=== PATIENT | female | born 1935 | race Caucasian/White ===

== ENCOUNTER 2017-06-06 05:34 | Inpatient (IN) | payer MEDICARE ==
[2017-06-01 08:40] VITALS: BMI 24.0
[2017-06-06] MEDS ORDERED: Sodium Chloride 0.9% 10 ML ONE (06:36)
[2017-06-06] MEDS ORDERED: Fentanyl 250 MCG/5 ML VIAL ONE (06:58)
[2017-06-06] MEDS ORDERED: CEFAZOLIN/Water 2 GM/20 ML SYRINGE ONE (07:00)
[2017-06-06 07:07] LABS: #Eosinphils 0.1 thou/uL (0.0-0.7); #Lymphocytes 1.3 thou/uL (1.20-3.40); #Monocytes 0.8 thou/uL (0.11-0.59); #Neutrophils 5.3 thou/uL (1.40-6.50); %Basophils 0.2 % (0.0-1.0); %Eosinophils 1.8 % (0.0-10.0); %Lymphocytes 17.8 % (21.0-51.0); %Monocytes 9.9 % (0.0-10.0); Hematocrit 36.7 % (36.0-47.0); Mean Platelet Volume 6.2 fL (7.4-10.4); Red Blood Cell (RBC) Count 3.96 mill/uL (4.20-5.40); White Blood Cell (WBC) Count 7.5 thou/uL (4.8-10.8)
[2017-06-06 07:23] LABS: Anion Gap 10 mmol/L (10-20); BUN (Urea Nitrogen) 15 mg/dL (9.8-20.1); Calc. Creatinine Clearance 59 mL/min (70-130); Calcium 9.3 mg/dL (7.8-10.44); Carbon Dioxide 25 mmol/L (23-31); Chloride 107 mmol/L (98-107); Estimated GFR-MDRD 76
[2017-06-06] MEDS ORDERED: Morphine Sulfate 2 MG/ML SYRINGE SLOW IVP PRN (08:05)
[2017-06-06] MEDS ORDERED: Promethazine HCl 25 MG/ML VIAL SLOW IVP PRN (08:05)
[2017-06-06] MEDS ORDERED: Promethazine HCl 25 MG/ML VIAL IM PRN ×2 (08:05→11:30)
[2017-06-06] MEDS ORDERED: Ondansetron HCl/PF 4 MG/2 ML Vial IVP PRN ×2 (08:05→11:30)
--- NOTE | 2017-06-06 08:38 | OP ---
DATE OF PROCEDURE: 06/06/2017 SURGEON: Mike Bourne M.D. CAFETERIA COUNTER ATTENDANT: Tessie Osei PROCEDURE: Removal of hardware C5-6, exploration of spinal fusion C5-6, anterior cervical discectomy C4-5, interbody arthrodesis, intravertebral biomechanical device, local morselized autograft, demine ralized bone matrix, and anterior titanium instrumentation C4-5. PROCEDURE IN DETAIL: The patient was brought to the operating room and intubated. She was positione d supine with the head in modest extension on a gel-filled donut. Incision was made in the right pre cervical area and dissecting medial to the sternocleidomastoid muscle. We identified the prior hardw are. The plate was removed and the fusion was explored and seemed to be solid. Next, we placed dist raction across C4-5, debrided the intervertebral disk, and using the operating microscope and microdi ssection techniques, completely decompressed the neural elements. Next, the bony endplates were deco rticated for the purpose of arthrodesis and an appropriately sized intravertebral biomechanical PEEK device was brought into the field, filled with demineralized bone matrix and local morselized autogra ft, and tapped into place securely at C4-5. Next, an anterior plate was brought in the field and sec ured to C4 and C5 using two 14 mm screws at each level. The wound was then extensively irrigated, im maculate hemostasis was secured, and the wound was closed in anatomic layers.
[2017-06-06] MEDS ORDERED: Fentanyl 100 MCG/2 ML VIAL ONE ×2 (08:51→09:17)
[2017-06-06] MEDS ORDERED: Ketorolac Tromethamine 30 MG/ML VIAL ONE (09:05)
[2017-06-06] MEDS ORDERED: tiZANidine HCl 4 MG TAB PO PRN (11:30)
[2017-06-06] MEDS ORDERED: diphenhydrAMINE 50 MG/ML VIAL IVP PRN (11:30)
[2017-06-06] MEDS ORDERED: Mag-Al 1200 mg/1200 mg/30 ML UDCUP PO PRN (11:30)
[2017-06-06] MEDS ORDERED: Promethazine HCl 12.5 MG SUPP PR PRN (11:30)
[2017-06-06] MEDS ORDERED: HYDROcodone/Acetaminophen 10/325 mg Tablet PO PRN (11:30)
[2017-06-06] MEDS ORDERED: diphenhydrAMINE 25 MG CAP PO PRN (11:30)
[2017-06-06] MEDS ORDERED: Morphine PF 1 MG/ML SYR IVP PRN (11:36)
[2017-06-06] MEDS ORDERED: Morphine 4 MG/ML VIAL SLOW IVP PRN (11:37)
[2017-06-06] MEDS ORDERED: traMADol HCl 50 MG TAB PO PRN (11:48)
[2017-06-06] MEDS: Dexamethasone 4 mg/ml Vial SLOW IVP SCH ×3 (11:51→23:26)
[2017-06-06] MEDS: Sodium Chloride 0.9% 1,000 ML IV SCH (11:59)
--- NOTE | 2017-06-06 12:57 | PDOC.PN ---
- Subjective Encounter Start Date: 06/06/17 Encounter Start Time: 10:40 Subjective: no sob or chest pain or palp -: has no trouble swallowing - Objective MAR Reviewed: Yes Vital Signs & Weight: Weight Weight 140 lb Result Diagrams: 06/06/17 06:59 06/06/17 06:59 Phys Exam - Physical Examination HEENT: PERRLA, moist MMs Neck: no JVD has surgical dressing anteriorly Respiratory: no wheezing, no rales Cardiovascular: RRR, no significant murmur Gastrointestinal: soft, non-tender, positive bowel sounds Musculoskeletal: no edema, pulses present Neurological: non-focal, moves all 4 limbs Psychiatric: A&O x 3 Dx/Plan (1) Cervical radiculopathy Code(s): M54.12 - RADICULOPATHY, CERVICAL REGION Status: Acute Comment: s/p ACDF 06/06/2017 (2) Dyslipidemia Code(s): E78.5 - HYPERLIPIDEMIA, UNSPECIFIED Status: Chronic (3) GERD (gastroesophageal reflux disease) Code(s): K21.9 - GASTRO-ESOPHAGEAL REFLUX DISEASE WITHOUT ESOPHAGITIS Status: Chronic Qualifiers: Esophagitis presence: esophagitis presence not specified Qualified Code(s) : K21.9 - Gastro-esophageal reflux disease without esophagitis (4) Paroxysmal A-fib Code(s): I48.0 - PAROXYSMAL ATRIAL FIBRILLATION Status: Chronic Comment: in sinus now - Plan post op doing well -: is off eliquis for surgery -: continue current home meds -: pravachol, fish oil and protonix -: flecainide prn for afib with rvr, will f/u * . Review of Systems - Medications/Allergies Allergies/Adverse Reactions: Allergies Allergy/AdvReac Type Severity Reaction Status Date / Time No Known Drug Allergies Allergy Verified 05/29/15 08:55 Medications: Current Medications Hydrocodone Bitart/Acetaminophen ([place] 10/325) 1 tab PO Q4H PRN PRN Reason: PAIN (1-3) Hydrocodone Bitart/Acetaminophen ([place] 10/325) 2 tab PO Q4H PRN PRN Reason: PAIN (4-6) Al Hydroxide/Mg Hydroxide (Maalox) 30 ml PO Q4H PRN PRN Reason: Heartburn or Indigestion Calcium/Vitamin D (Caltrate 600 + Vit D) 1 tab PO BID [place] Cefazolin Sodium (Ancef) 2 gm SLOW IVP 0800,1600,2359 [facility] Stop: 06/07/17 00:00 Cholecalciferol (Vitamin D3) 1,000 units PO DAILY [facility] Dexamethasone (Decadron) 4 mg SLOW IVP Q6HR [facility] Last Admin: 06/06/17 11:51 Dose: 4 mg Diphenhydramine HCl (Benadryl) 25 mg PO Q6H PRN PRN Reason: Itching Diphenhydramine HCl (Benadryl) 25 mg IVP Q6H PRN PRN Reason: Itching Fish Oil (Fish Oil) 1,000 mg PO BID [facility] Flecainide Acetate (Tambocor) 50 mg PO BID [facility] Sodium Chloride (Normal Saline 0.9%) 1,000 mls @ 75 mls/hr IV .[id number] [facility] Last Admin: 06/06/17 11:59 Dose: 1,000 mls Ketorolac Tromethamine (Toradol) 15 mg IVP 0300,0900,1500,2100 [facility] Stop: 06/08/17 09:01 Metoprolol Tartrate (Lopressor) 12.5 mg PO BID [facility] Morphine Sulfate (Duramorph) 2 mg IVP Q1H PRN PRN Reason: Moderate Breakthrough Pain Morphine Sulfate (Morphine) 4 mg SLOW IVP Q1H PRN PRN Reason: SEVERE BREAKTHROUGH PAIN Multivitamins (Theragran) 1 tab PO DAILY [facility] Ondansetron HCl (Zofran) 4 mg IVP Q24H PRN PRN Reason: Nausea/Vomiting Pantoprazole Sodium (Protonix) 40 mg PO DAILY [facility] Biotin 0 each PO DAILY [facility] Glucosamine (Chondroitin Complex) 0 each PO BID [facility] Promethazine HCl (Phenergan) 12.5 mg IM Q4H PRN PRN Reason: Nausea/Vomiting Promethazine HCl (Phenergan) 12.5 mg PO Q4H PRN PRN Reason: Nausea/Vomiting Promethazine HCl (Phenergan Suppository) 12.5 mg AR Q4H PRN PRN Reason: Nausea/Vomiting Simvastatin (Zocor) 10 mg PO HS [facility] Sodium Chloride (Flush - Normal Saline) 10 ml IVF PRN PRN PRN Reason: Saline Flush Tizanidine HCl (Zanaflex) 4 mg PO Q6H PRN PRN Reason: MUSCLE SPASM Tramadol HCl (Ultram) 50 mg PO BID PRN PRN Reason: Mild Pain (1-3)
[2017-06-06] MEDS ORDERED: Glycopyrrolate 0.2 MG/ML 5 ML SYRINGE ONE (13:57)
[2017-06-06] MEDS ORDERED: Lidocaine 1% PF 5 ML VIAL ONE (13:57)
[2017-06-06] MEDS ORDERED: Dexamethasone 20 MG/5 ML VIAL ONE (13:57)
[2017-06-06] MEDS ORDERED: Ondansetron HCl/PF 4 MG/2 ML Vial ONE (13:57)
[2017-06-06] MEDS ORDERED: Propofol 200 MG/20 ML VIAL ONE (13:57)
[2017-06-06] MEDS: Ketorolac Tromethamine 30 MG/ML VIAL IVP SCH ×2 (14:19→21:05)
[2017-06-06] MEDS: HYDROcodone/Acetaminophen 10/325 mg Tablet PO PRN ×2 (14:20→21:17)
[2017-06-06] MEDS: CEFAZOLIN/Water 2 GM/20 ML SYRINGE SLOW IVP SCH ×2 (14:20→23:26)
[2017-06-06] MEDS ORDERED: Simvastatin 5 MG TAB PO SCH (21:00)
[2017-06-06] MEDS ORDERED: GLUCOSAMINE CHONDROITIN COMPLEX PO SCH (21:00)
[2017-06-06] MEDS ORDERED: Metoprolol Tartrate 25 MG TAB PO SCH (21:00)
[2017-06-06] MEDS: Calcium Carbonate + Vit D 1 TAB PO SCH (21:03)
[2017-06-06] MEDS: Fish Oil 1,000 MG CAP PO SCH (21:04)
[2017-06-07] MEDS: Sodium Chloride 0.9% 1,000 ML IV SCH (00:29)
[2017-06-07] MEDS: Ketorolac Tromethamine 30 MG/ML VIAL IVP SCH ×2 (04:15→09:44)
[2017-06-07] MEDS: Dexamethasone 4 mg/ml Vial SLOW IVP SCH (05:26)
[2017-06-07 05:50] LABS: #Lymphocytes 0.9 thou/uL (1.20-3.40); #Monocytes 0.4 thou/uL (0.11-0.59); #Neutrophils 14.9 thou/uL (1.40-6.50); %Eosinophils 0.1 % (0.0-10.0); %Lymphocytes 5.3 % (21.0-51.0); %Monocytes 2.4 % (0.0-10.0); Hematocrit 37.1 % (36.0-47.0); Red Blood Cell (RBC) Count 3.96 mill/uL (4.20-5.40); White Blood Cell (WBC) Count 16.1 thou/uL (4.8-10.8)
[2017-06-07 06:11] LABS: Anion Gap 10 mmol/L (10-20); BUN (Urea Nitrogen) 17 mg/dL (9.8-20.1); Calc. Creatinine Clearance 59 mL/min (70-130); Calcium 9.7 mg/dL (7.8-10.44); Carbon Dioxide 26 mmol/L (23-31); Chloride 105 mmol/L (98-107); Estimated GFR-MDRD 77
[2017-06-07 07:59] VITALS: TEMP 97.8
[2017-06-07] MEDS ORDERED: Multivit, Therapeutic 1 TAB PO SCH (09:00)
[2017-06-07] MEDS ORDERED: BIOTIN PO SCH (09:00)
[2017-06-07] MEDS: Calcium Carbonate + Vit D 1 TAB PO SCH (09:43)
[2017-06-07] MEDS: Fish Oil 1,000 MG CAP PO SCH (09:44)
[2017-06-07] MEDS: HYDROcodone/Acetaminophen 10/325 mg Tablet PO PRN (09:45)
--- NOTE | 2017-06-07 10:23 | PDOC.PN ---
- Subjective Encounter Start Date: 06/07/17 Encounter Start Time: 07:50 -: old records requested/rev Patient seen and examined. No new complaints. No overnight events, no swallow problem - Objective MAR Reviewed: Yes Vital Signs & Weight: Vital Signs (12 hours) Temp Pulse Resp BP Pulse Ox 06/07/17 07:30 97.8 F 66 16 115/68 96 06/07/17 04:00 97.7 F 61 18 107/60 95 06/07/17 00:00 97.9 F 65 18 106/62 94 L Weight Weight 140 lb I&O: 06/06/17 06/07/17 06/08/17 06:59 06:59 06:59 Intake Total 1500 Balance 1500 Result Diagrams: 06/07/17 04:35 06/07/17 04:35 Phys Exam - Physical Examination Constitutional: NAD HEENT: PERRLA, moist MMs, sclera anicteric Neck: no JVD, supple surgical site with dressing Respiratory: no wheezing, no rales, no rhonchi Cardiovascular: RRR, no significant murmur, no rub Gastrointestinal: soft, non-tender, no distention, positive bowel sounds Musculoskeletal: no edema, pulses present Neurological: non-focal, normal sensation, moves all 4 limbs Psychiatric: normal affect, A&O x 3 Skin: no rash, normal turgor Dx/Plan (1) Cervical radiculopathy Code(s): M54.12 - RADICULOPATHY, CERVICAL REGION Status: Acute Comment: s/p ACDF 06/06/2017 (2) S/P hardware removal Code(s): Z98.890 - OTHER SPECIFIED POSTPROCEDURAL STATES Status: Acute (3) Chronic anticoagulation Code(s): Z79.01 - SUBMARINE CABLE EQUIPMENT TECHNICIAN (CURRENT) USE OF ANTICOAGULANTS Status: Chronic (4) Dyslipidemia Code(s): E78.5 - HYPERLIPIDEMIA, UNSPECIFIED Status: Chronic (5) GERD (gastroesophageal reflux disease) Code(s): K21.9 - GASTRO-ESOPHAGEAL REFLUX DISEASE WITHOUT ESOPHAGITIS Status: Chronic Qualifiers: Esophagitis presence: esophagitis presence not specified Qualified Code(s) : K21.9 - Gastro-esophageal reflux disease without esophagitis (6) Paroxysmal A-fib Code(s): I48.0 - PAROXYSMAL ATRIAL FIBRILLATION Status: Chronic Comment: in sinus now - Plan cont current plan of care * medication reviewed as below * symptomatic treatment * pt is planned for discharge today * resume home meds. * on hold elsi until cleared by neurosurgeon for her PAF Review of Systems - Review of Systems ENT: negative: Ear Pain, Ear Discharge, Nose Pain, Nose Discharge, Nose Congestion, Mouth Pain, Mouth Swelling, Throat Pain, Throat Swelling, Other Respiratory: negative: Cough, Dry, Shortness of Breath, Hemoptysis, SOB with Excertion, Pleuritic Pain, Sputum, Wheezing Cardiovascular: negative: Chest Pain, Palpitations, Orthopnea, Paroxysmal Noc. Dyspnea, Edema, Light Headedness, Other Gastrointestinal: negative: Nausea, Vomiting, Abdominal Pain, Diarrhea, Constipation, Melena, Hematochezia, Other Genitourinary: negative: Dysuria, Frequency, Incontinence, Hematuria, Retention , Other Musculoskeletal: negative: Neck Pain, Shoulder Pain, Arm Pain, Back Pain, Hand Pain, Leg Pain, Foot Pain, Other Skin: negative: Rash, Lesions, Renny, Bruising, Other - Medications/Allergies Allergies/Adverse Reactions: Allergies Allergy/AdvReac Type Severity Reaction Status Date / Time No Known Drug Allergies Allergy Verified 05/29/15 08:55 Medications: Current Medications Hydrocodone Bitart/Acetaminophen ([place] 10/325) 1 tab PO Q4H PRN PRN Reason: PAIN (1-3) Hydrocodone Bitart/Acetaminophen ([place] 10/325) 2 tab PO Q4H PRN PRN Reason: PAIN (4-6) Last Admin: 06/07/17 09:45 Dose: 2 tab Al Hydroxide/Mg Hydroxide (Maalox) 30 ml PO Q4H PRN PRN Reason: Heartburn or Indigestion Calcium/Vitamin D (Caltrate 600 + Vit D) 1 tab PO BID [facility] Last Admin: 06/07/17 09:43 Dose: 1 tab Cholecalciferol (Vitamin D3) 1,000 units PO DAILY [facility] Last Admin: 06/07/17 09:44 Dose: 1,000 units Dexamethasone (Decadron) 4 mg SLOW IVP Q6HR [facility] Last Admin: 06/07/17 05:26 Dose: 4 mg Diphenhydramine HCl (Benadryl) 25 mg PO Q6H PRN PRN Reason: Itching Diphenhydramine HCl (Benadryl) 25 mg IVP Q6H PRN PRN Reason: Itching Fish Oil (Fish Oil) 1,000 mg PO BID [facility] Last Admin: 06/07/17 09:44 Dose: 1,000 mg Flecainide Acetate (Tambocor) 50 mg PO BID PRN PRN Reason: afib Sodium Chloride (Normal Saline 0.9%) 1,000 mls @ 75 mls/hr IV .[id number] [facility] Last Admin: 06/07/17 00:29 Dose: Not Given Ketorolac Tromethamine (Toradol) 15 mg IVP 0300,0900,1500,2100 [facility] Stop: 06/08/17 09:01 Last Admin: 06/07/17 09:44 Dose: 15 mg Morphine Sulfate (Duramorph) 2 mg IVP Q1H PRN PRN Reason: Moderate Breakthrough Pain Morphine Sulfate (Morphine) 4 mg SLOW IVP Q1H PRN PRN Reason: SEVERE BREAKTHROUGH PAIN Multivitamins (Theragran) 1 tab PO DAILY [facility] Last Admin: 06/07/17 09:45 Dose: 1 tab Ondansetron HCl (Zofran) 4 mg IVP Q24H PRN PRN Reason: Nausea/Vomiting Pantoprazole Sodium (Protonix) 40 mg PO DAILY [facility] Last Admin: 06/07/17 09:45 Dose: 40 mg Biotin 0 each PO DAILY [facility] Glucosamine (Chondroitin Complex) 0 each PO BID [facility] Promethazine HCl (Phenergan) 12.5 mg IM Q4H PRN PRN Reason: Nausea/Vomiting Promethazine HCl (Phenergan) 12.5 mg PO Q4H PRN PRN Reason: Nausea/Vomiting Promethazine HCl (Phenergan Suppository) 12.5 mg PA Q4H PRN PRN Reason: Nausea/Vomiting Simvastatin (Zocor) 10 mg PO HS [facility] Last Admin: 06/06/17 21:04 Dose: 10 mg Sodium Chloride (Flush - Normal Saline) 10 ml IVF PRN PRN PRN Reason: Saline Flush Tizanidine HCl (Zanaflex) 4 mg PO Q6H PRN PRN Reason: MUSCLE SPASM Tramadol HCl (Ultram) 50 mg PO BID PRN PRN Reason: Mild Pain (1-3)
[2017-06-07 11:33] VITALS: BP 137/78
--- NOTE | 2017-06-07 12:43 | DIS ---
DATE OF ADMISSION: 06/06/2017 DATE OF DISCHARGE: 06/07/2017 PRIMARY CARE PHYSICIAN: Franky Holman M.D. DISCHARGE DISPOSITION: Home. PRIMARY DISCHARGE DIAGNOSIS: Status post removal of hardware C5-C6 anterior cervical diskectomy. SECONDARY DISCHARGE DIAGNOSES: Cervical radiculopathy, chronic anticoagulation with Eliquis, dyslipi demia, gastroesophageal reflux disease, and paroxysmal atrial fibrillation. PRIMARY PROCEDURE/OPERATION: Anterior cervical diskectomy C4-C5, exploration of spinal fusion C5-C6, and removal of hardware at C5-C6. RADIOLOGICAL INVESTIGATION: None. SIGNIFICANT LABORATORY DATA: WBC 16.1, hemoglobin 11.8, platelets 330. Sodium 136, potassium 4.5, B UN 17, creatinine 0.72, and calcium 9.7. DISCHARGE MEDICATIONS: Biotin 3000 mcg p.o. daily, calcium with vitamin D 1 tablet twice daily, bindu min D3 1000 units p.o. daily, fish oil 1000 mg p.o. b.i.d., flecainide 50 mg p.o. b.i.d., glucosamine 1 tablet p.o. b.i.d., [place] 7.5 one tablet q.6 hourly p.r.n., Lopressor 12.5 mg p.o. b.i.d., multivi tamin 1 capsule p.o. daily, Protonix 40 mg p.o. daily, pravastatin 20 mg p.o. at bedtime, Zanaflex 4 mg q.6 hourly p.r.n. at bedtime, tramadol 50 mg b.i.d. p.r.n. CONTRAINDICATIONS: None. CODE STATUS: FULL CODE. INPATIENT CONSULTANTS: Dr. Bourne was primary while in hospital. The patient will follow up with Dr. Franky Holman as instructed. The patient will follow up with Dr. Bourne as instructed. HOSPITAL COURSE: An 82-year-old female who was admitted by Dr. Bourne. The patient underwent wilber kelly of hardware at C5-C6, exploration of spinal fusion at C5-C6, and anterior cervical diskectomy at C4-5. Post procedure, patient was at surgical floor and sound team consulted for medical comanagemen t. The patient was medically stable. While in hospital, the patient was off on anticoagulation ther apy because of cervical spine surgery. She will be off on that medication until cleared by neurosurg dara and the rest of medication can be continued upon discharge and we continued while in hospital as well. Her pain is controlled. Patient is ambulatory. She does not have any difficulty swallowing. The patient is medically stable for discharge today. The patient is seen and examined at bedside today. Please see my progress from today for further det ails.
== END 2017-06-07 12:33 | disposition home or self-care (01) | DRG 473 ==
LOC: SURG A 05:34 → SURG B 09:38
PROVIDERS: ADMIT Neurological Surgery; ATTEND Neurological Surgery
PROC: 0RG20A0 Fusion of 2 or more Cervical Vertebral Joints with Interbody Fusion Device, Anterior Approach, Anterior Column, Open Approach (ICD-10-PCS; principal; 2017-06-06)
PROC: 0RP104Z Removal of Internal Fixation Device from Cervical Vertebral Joint, Open Approach (ICD-10-PCS; 2017-06-06)
PROC: 0RB30ZZ Excision of Cervical Vertebral Disc, Open Approach (ICD-10-PCS; 2017-06-06)
PROC: 01N10ZZ Release Cervical Nerve, Open Approach (ICD-10-PCS; 2017-06-06)
DX: M50.121 Cervical disc disorder at C4-C5 level with radiculopathy (principal); I48.0 Paroxysmal atrial fibrillation; E78.5 Hyperlipidemia, unspecified; K21.9 Gastro-esophageal reflux disease without esophagitis; Z79.01 Long term (current) use of anticoagulants
CPT/HCPCS: 36415; 76001; 80048; 85025; 93005; 93010; A4216; C1713; J1100; J1885; J2001; J2405; J2704; J3010; J3490

== ENCOUNTER 2017-06-21 10:58 | Outpatient (CLI) | payer MEDICARE ==
--- NOTE | 2017-06-21 13:00 | RAD ---
CERVICAL SPINE: HISTORY: Postop followup. Cervical disk disease. FINDINGS: The patient is post an anterior fusion procedure. Anterior plate and screws transfix C4-C5 with an i nterbody implant at this level, which appears adequately positioned. There is also an interbody impl anted noted at C5-C6, which appears adequately positioned with partial fusion at this level. Posteri or alignment is preserved throughout the cervical spine. Mild degenerative change. IMPRESSION: Postoperative findings as described. POS: JAYLEN
== END 2017-06-21 10:59 | disposition home or self-care (01) ==
LOC: TBSIIMAG 10:58
PROVIDERS: ATTEND Neurological Surgery
DX: M50.90 Cervical disc disorder, unspecified, unspecified cervical region (principal); Z98.1 Arthrodesis status
CPT/HCPCS: 72040

== ENCOUNTER 2017-08-04 13:31 | Outpatient (CLI) | payer MEDICARE ==
--- NOTE | 2017-08-04 14:55 | RAD ---
FOUR VIEWS CERVICAL SPINE: INDICATION: Disk degeneration. COMPARISON: Prior exam dated 06/21/17. FINDINGS: ACDF at C4-5 with intervertebral disk cage at C5-6 is stable. The instrumentation projects in the ex pected position. The instrumentation projects in the expected position. Spinal alignment is preserv ed. Prevertebral soft tissues are normal-appearing. Lateral masses are symmetric. The lung apices are clear. IMPRESSION: Stable postoperative cervical spine. POS: JAYLEN
== END 2017-08-04 13:32 | disposition home or self-care (01) ==
LOC: TBSIIMAG 13:31
PROVIDERS: ATTEND Neurological Surgery
DX: M50.30 Other cervical disc degeneration, unspecified cervical region (principal); Z98.890 Other specified postprocedural states
CPT/HCPCS: 72040

== ENCOUNTER 2017-10-13 13:31 | Outpatient (CLI) | payer MEDICARE ==
--- NOTE | 2017-10-13 16:07 | MRI ---
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 TECHNIQUE: 3D [id number] was obtained of the major arterial structures of the brain. FINDINGS: No hemodynamically significant stenosis, occlusion or aneurysmal formation is demonstrated involving the ACAs, MCAs, scrap preparation supervisor, basilar or intracranial ICAs. The right vertebral artery is slightly diminutive . The visualized proximal aspects of the ophthalmic arteries appear patent. IMPRESSION: No hemodynamically significant demonstrated. POS: JAYLEN
--- NOTE | 2017-10-13 16:29 | MRI ---
MRI OF BRAIN WITHOUT CONTRAST 10/13/17 HISTORY: Ischemic optic neuropathy, left eye. Patient complains of difficulty seeing out of the right eye. Con cern for CVA. FINDINGS: No restricted diffusion is seen. No evidence of infarct, hemorrhage, midline shift, or abnormal extr a-axial fluid collections are identified. The ventricular size is appropriate and the basilar cistern s patent. There are a few foci of T2 prolongation in the periventricular white matter consistent with mild chronic small vessel ischemic disease. The visualized paranasal sinuses and mastoids air cells are well aerated. IMPRESSION: No evidence of acute intracranial process. POS: [facility]
== END 2017-10-13 13:32 | disposition home or self-care (01) ==
LOC: MRI 13:31
PROVIDERS: ATTEND Internal Medicine
DX: H47.012 Ischemic optic neuropathy, left eye (principal); I69.30 Unspecified sequelae of cerebral infarction
CPT/HCPCS: 70544; 70551

== ENCOUNTER 2017-12-20 09:19 | Outpatient (CLI) | payer MEDICARE ==
--- NOTE | 2017-12-20 11:22 | RAD ---
4 VIEWS CERVICAL SPINE: Date: 12/20/17 COMPARISON: None. HISTORY: Pain, dysphagia, prior cervical spine fusion surgery. FINDINGS: Lateral neutral imaging, as well as frontal imaging, open-mouth odontoid view, and Fuchs view provide d. Anterior diskectomy and fusion hardware is noted at C4-5. There is an intervertebral disc device at C 5-6 as well. This postoperative hardware is stable when compared to the 08/04/17 examination. No prev ertebral soft tissue abnormality. Lateral imaging demonstrates no anterolisthesis or retrolisthesis w ithin the cervical spine. Frontal imaging demonstrates normal alignment. The open-mouth odontoid view demonstrates a normal appearing dens and C1-2 articulation. The Fuchs view is unremarkable. IMPRESSION: Postoperative changes within the cervical spine as above. POS: JAYLEN
== END 2017-12-20 09:20 | disposition home or self-care (01) ==
LOC: TBSIIMAG 09:19
PROVIDERS: ATTEND Neurological Surgery
DX: M50.90 Cervical disc disorder, unspecified, unspecified cervical region (principal); Z98.1 Arthrodesis status; Z98.890 Other specified postprocedural states
CPT/HCPCS: 72040

== ENCOUNTER 2019-12-19 08:49 | Outpatient (CLI) | payer MEDICARE ==
--- NOTE | 2019-12-19 09:40 | BD ---
BONE DENSITOMETRY: INDICATION: Postmenopausal screening. FINDINGS: Lumbar Spine: BMD (g/cm2) L1 0.661 T-Score: -3.0 L2 0.690 T-Score: -3.1 L3 0.801 T-Score: -2.6 L4 0.929 T-Score: -1.2 L1-L4 0.778 T-Score: -2.4 Femoral Neck: 0.516 T-Score: -3.0 Total Femur: 0.611 T-Score: -2.7 Impression: 1. Bone mineral density of the femoral neck indicates osteoporosis. 2. Bone mineral density of the lumbar spine indicates osteopenia. POS: [facility]
== END 2019-12-19 08:50 | disposition home or self-care (01) ==
LOC: BICMAMMO 08:49
PROVIDERS: ATTEND Internal Medicine Rheumatology
DX: M81.0 Age-related osteoporosis without current pathological fracture (principal); M85.859 Other specified disorders of bone density and structure, unspecified thigh
CPT/HCPCS: 77080

== ENCOUNTER 2020-12-18 15:04 | Inpatient (IN) | payer MEDICARE ==
[2020-12-18 15:46] LABS: #Lymphocytes 0.8 thou/uL (1.20-3.40); #Monocytes 0.5 thou/uL (0.11-0.59); #Neutrophils 9.1 thou/uL (1.40-6.50); %Basophils 0.2 % (0.0-1.0); %Eosinophils 0.3 % (0.0-10.0); %Lymphocytes 7.7 % (21.0-51.0); %Monocytes 4.7 % (0.0-10.0); %Neutrophils 87.2 % (42.0-75.0); Mean Corpuscular HGB CONC 35.2 g/dL (32.0-36.0); Mean Corpuscular Hemoglobin 32.9 pg (27.0-31.0); Mean Corpuscular Volume 93.5 fL (78.0-98.0); Mean Platelet Volume 7.8 fL (7.4-10.4); Platelet Count 217 thou/uL (130-400); RBC Distribution Width 12.3 % (11.5-14.5); Red Blood Cell (RBC) Count 4.88 mill/uL (4.20-5.40); White Blood Cell (WBC) Count 10.4 thou/uL (4.8-10.8)
[2020-12-18 16:12] LABS: AST (SGOT) 18 U/L (5-34); Albumin 4.4 g/dL (3.4-4.8); Alkaline Phosphatase 44 U/L (40-110); Anion Gap 14 mmol/L (10-20); BUN (Urea Nitrogen) 15 mg/dL (9.8-20.1); Bilirubin, Total 1.3 mg/dL (0.2-1.2); Calc. Creatinine Clearance 0 mL/min (70-130); Calcium 9.8 mg/dL (7.8-10.44); Carbon Dioxide 23 mmol/L (23-31); Chloride 103 mmol/L (98-107); Globulin 1.8 g/dL (2.4-3.5); Glucose 113 mg/dL (83-110); Lipase 12 U/L (8-78); Magnesium 1.9 mg/dL (1.6-2.6); Potassium 3.9 mmol/L (3.5-5.1); Protein, Total 6.2 g/dL (5.8-8.1); Sodium 136 mmol/L (136-145)
[2020-12-18 16:22] LABS: ALT (SGPT) 21 U/L (8-55)
[2020-12-18 16:23] LABS: Bilirubin Negative (Negative); Blood, Urine Small (Negative); Glucose, Urine (Dipstick) Negative (Negative); Ketone, Urine Negative (Negative); Leukocyte Negative (Negative); Nitrite Negative (Negative); Protein, Urine (Dipstick) Negative (Neg-Trace); Urobilinogen 0.2 mg/dL (Less than 2)
[2020-12-18 16:26] LABS: Clarity Clear (Clear)
[2020-12-18 16:29] LABS: Bacteria/HPF None Seen HPF (None Seen); RBC/HPF 0-3 HPF (0-3); Squamous Epithelial None Seen HPF (0-3); WBC/HPF 0-3 HPF (0-3)
[2020-12-18] MEDS ORDERED: Aspirin Chewable 81 MG TAB PO SCH (19:00)
[2020-12-18] MEDS ORDERED: HYDROcodone/Acetaminophen 5/325 mg Tablet PO PRN (19:59)
[2020-12-18] MEDS ORDERED: Calcium Carbonate 500 MG ChewTAB PO PRN (20:00)
[2020-12-18] MEDS ORDERED: Mag-Al 1200 mg/1200 mg/30 ML UDCUP PO PRN (20:00)
[2020-12-18] MEDS ORDERED: traMADol HCl 50 MG TAB PO PRN ×2 (20:02→20:28)
[2020-12-18 20:08] VITALS: BMI 24.9
[2020-12-18] MEDS ORDERED: TOCILIZUMAB 162 MG/0.9 ML SQ SCH (20:30)
[2020-12-18] MEDS ORDERED: Fish Oil 1,000 MG CAP PO SCH (21:00)
[2020-12-18] MEDS ORDERED: Calcium Carbonate 600 MG + Vit D TAB PO SCH (21:00)
[2020-12-18 21:31] LABS: Troponin I Less than 0.010 ng/mL (< 0.028)
[2020-12-18] MEDS: HYDROcodone/Acetaminophen 7.5/325 mg Tablet PO PRN (21:32)
[2020-12-18] MEDS: Flecainide 50 MG TAB PO SCH (21:36)
[2020-12-18] MEDS: Melatonin 3 MG TAB PO SCH (21:36)
[2020-12-18] MEDS: Acetaminophen 325 MG TAB PO PRN (22:35)
[2020-12-18] MEDS: Simvastatin 10 MG TAB PO SCH (22:36)
[2020-12-18] MEDS: Apixaban 2.5 MG TAB PO SCH (22:36)
[2020-12-19] MEDS: HYDROcodone/Acetaminophen 7.5/325 mg Tablet PO PRN ×3 (03:18→17:15)
[2020-12-19] MEDS: Acetaminophen 325 MG TAB PO PRN ×2 (03:25→17:14)
[2020-12-19] MEDS ORDERED: Bisacodyl 5 MG TAB PO PRN (03:56)
[2020-12-19] MEDS ORDERED: Non-Formulary Item 1 EACH (Cholecalciferol (Vitamin D3) [Vitamin D3] 2,000 UNIT Tablet) PO SCH (09:00)
[2020-12-19] MEDS: predniSONE 1 MG TAB PO SCH (09:29)
[2020-12-19] MEDS: Flecainide 50 MG TAB PO SCH (09:30)
[2020-12-19] MEDS: Apixaban 2.5 MG TAB PO SCH ×2 (09:32→20:31)
[2020-12-19 11:14] LABS: SARS-CoV-2 PCR by NAA Not Detected (NotDetected)
[2020-12-19 13:14] LABS: Hemoglobin 16.1 g/dL (12.0-16.0); Platelet Count 209 thou/uL (130-400)
[2020-12-19] MEDS ORDERED: Flecainide 50 MG TAB PO SCH (16:00)
[2020-12-19] MEDS: Simvastatin 10 MG TAB PO SCH (20:32)
[2020-12-20] MEDS: Melatonin 3 MG TAB PO SCH ×2 (00:11→21:02)
[2020-12-20 05:05] LABS: #Basophils 0.1 thou/uL (0.0-0.2); #Eosinphils 0.1 thou/uL (0.0-0.7); #Lymphocytes 1.9 thou/uL (1.20-3.40); #Monocytes 0.7 thou/uL (0.11-0.59); %Basophils 0.7 % (0.0-1.0); %Eosinophils 1.7 % (0.0-10.0); %Lymphocytes 24.2 % (21.0-51.0); %Monocytes 9.1 % (0.0-10.0); %Neutrophils 64.4 % (42.0-75.0); Hemoglobin 15.2 g/dL (12.0-16.0); Mean Corpuscular HGB CONC 33.6 g/dL (32.0-36.0); Mean Corpuscular Volume 95.1 fL (78.0-98.0); Mean Platelet Volume 7.6 fL (7.4-10.4); Platelet Count 212 thou/uL (130-400); RBC Distribution Width 12.5 % (11.5-14.5); Red Blood Cell (RBC) Count 4.75 mill/uL (4.20-5.40); White Blood Cell (WBC) Count 7.7 thou/uL (4.8-10.8)
[2020-12-20 05:27] LABS: Anion Gap 10 mmol/L (10-20); BUN (Urea Nitrogen) 14 mg/dL (9.8-20.1); Calc. Creatinine Clearance 45 mL/min (70-130); Calcium 9.2 mg/dL (7.8-10.44); Carbon Dioxide 27 mmol/L (23-31); Chloride 103 mmol/L (98-107); Glucose 98 mg/dL (83-110); Potassium 3.6 mmol/L (3.5-5.1); Sodium 136 mmol/L (136-145)
[2020-12-20] MEDS: HYDROcodone/Acetaminophen 7.5/325 mg Tablet PO PRN ×2 (08:07→19:00)
[2020-12-20] MEDS: Acetaminophen 325 MG TAB PO PRN ×2 (08:08→19:00)
[2020-12-20] MEDS ORDERED: Dronedarone HCl 400 MG TAB PO SCH (08:15)
[2020-12-20] MEDS: predniSONE 1 MG TAB PO SCH (09:00)
[2020-12-20] MEDS ORDERED: Flecainide 50 MG TAB PO SCH (09:00)
[2020-12-20] MEDS: Apixaban 2.5 MG TAB PO SCH ×2 (09:01→20:12)
[2020-12-20] MEDS: Dronedarone HCl 400 MG TAB PO SCH (17:03)
[2020-12-20] MEDS: Simvastatin 10 MG TAB PO SCH (20:12)
[2020-12-21] MEDS: Acetaminophen 325 MG TAB PO PRN ×2 (03:35→14:25)
[2020-12-21] MEDS: HYDROcodone/Acetaminophen 7.5/325 mg Tablet PO PRN ×2 (03:36→14:24)
[2020-12-21] MEDS: predniSONE 1 MG TAB PO SCH (08:21)
[2020-12-21] MEDS: Apixaban 2.5 MG TAB PO SCH (08:21)
[2020-12-21] MEDS: Dronedarone HCl 400 MG TAB PO SCH (08:22)
[2020-12-21 12:43] VITALS: BP 124/75; TEMP 98
== END 2020-12-21 15:38 | disposition home or self-care (01) | DRG 310 ==
LOC: ERS 15:04 → 2SW 17:41 → OBSVTOIN 12-19 15:45
PROVIDERS: ADMIT Internal Medicine; ATTEND Internal Medicine
DX: I48.0 Paroxysmal atrial fibrillation (principal); Z23 Encounter for immunization; Z20.822 Contact with and (suspected) exposure to COVID-19; I44.0 Atrioventricular block, first degree; I49.1 Atrial premature depolarization; R91.8 Other nonspecific abnormal finding of lung field; I10 Essential (primary) hypertension; K21.9 Gastro-esophageal reflux disease without esophagitis; H54.40 Blindness, one eye, unspecified eye; M31.5 Giant cell arteritis with polymyalgia rheumatica; E78.5 Hyperlipidemia, unspecified; I25.10 Atherosclerotic heart disease of native coronary artery without angina pectoris; E78.00 Pure hypercholesterolemia, unspecified; I95.9 Hypotension, unspecified; Z79.01 Long term (current) use of anticoagulants; Z79.52 Long term (current) use of systemic steroids; Z79.899 Other long term (current) drug therapy
CPT/HCPCS: 36415; 70450; 71045; 80048; 80053; 81003; 81015; 82565; 83690; 83735; 83880; 84484; 85014; 85018; 85025; 85049; 90471; 90732; 93005; 93010; 94760; G0009; G0378; J7512; U0003; U0005

== ENCOUNTER 2020-12-26 09:49 | Outpatient (CLI) | payer MEDICARE | END 2020-12-26 09:50 | disposition home or self-care (01) | LOC: PET 09:49 | PROVIDERS: ATTEND Internal Medicine Pulmonary Disease | DX: C34.90 Malignant neoplasm of unspecified part of unspecified bronchus or lung (principal); R91.8 Other nonspecific abnormal finding of lung field | CPT/HCPCS: 78815; A9552 ==

== ENCOUNTER 2021-01-06 13:44 | Outpatient (CLI) | payer MEDICARE | END 2021-01-06 13:45 | disposition home or self-care (01) | LOC: LABBT 13:44 | PROVIDERS: ATTEND Thoracic Surgery (Cardiothoracic Vascular Surgery) | DX: Z01.812 Encounter for preprocedural laboratory examination (principal); C34.91 Malignant neoplasm of unspecified part of right bronchus or lung | CPT/HCPCS: 80048; 85027; 86850; 86900; 86901 ==

== ENCOUNTER 2021-01-27 16:03 | Inpatient (IN) | payer MEDICARE ==
[2021-01-27 16:48] LABS: #Eosinphils 0.1 thou/uL (0.0-0.7); #Lymphocytes 0.7 thou/uL (1.20-3.40); #Monocytes 0.6 thou/uL (0.11-0.59); #Neutrophils 13.6 thou/uL (1.40-6.50); %Basophils 0.1 % (0.0-1.0); %Eosinophils 0.3 % (0.0-10.0); %Lymphocytes 4.9 % (21.0-51.0); %Monocytes 3.8 % (0.0-10.0); %Neutrophils 90.9 % (42.0-75.0); Hemoglobin 8.2 g/dL (12.0-16.0); Mean Corpuscular HGB CONC 34.4 g/dL (32.0-36.0); Mean Corpuscular Hemoglobin 32.6 pg (27.0-31.0); Mean Corpuscular Volume 94.8 fL (78.0-98.0); Mean Platelet Volume 6.8 fL (7.4-10.4); Platelet Count 265 thou/uL (130-400); RBC Distribution Width 12.5 % (11.5-14.5); Red Blood Cell (RBC) Count 2.52 mill/uL (4.20-5.40)
[2021-01-27 17:11] LABS: ALT (SGPT) 10 U/L (8-55); AST (SGOT) 13 U/L (5-34); Albumin 3.5 g/dL (3.4-4.8); Alkaline Phosphatase 52 U/L (40-110); Anion Gap 11 mmol/L (10-20); BUN (Urea Nitrogen) 15 mg/dL (9.8-20.1); Bilirubin, Total 0.6 mg/dL (0.2-1.2); Calc. Creatinine Clearance 0 mL/min (70-130); Calcium 8.5 mg/dL (7.8-10.44); Carbon Dioxide 25 mmol/L (23-31); Chloride 102 mmol/L (98-107); Globulin 1.4 g/dL (2.4-3.5); Glucose 125 mg/dL (83-110); Potassium 4.3 mmol/L (3.5-5.1); Protein, Total 4.9 g/dL (5.8-8.1); Sodium 134 mmol/L (136-145)
[2021-01-27] MEDS ORDERED: Morphine 4 MG/ML VIAL ONE ×2 (17:48→21:00)
[2021-01-27] MEDS ORDERED: Piperacillin/Tazobactam 3.375 GM in Sodium Chloride 0.9% 100 ML IVPB SCH ×2 (23:30→23:59)
[2021-01-27] MEDS ORDERED: Piperacillin/Tazobactam 3.375 GM VIAL ONE (23:43)
[2021-01-27] MEDS: Acetaminophen 325 MG TAB PO PRN (23:50)
[2021-01-28] MEDS ORDERED: traMADol HCl 50 MG TAB PO PRN (00:04)
[2021-01-28] MEDS ORDERED: Gabapentin 300 MG CAP PO SCH (00:30)
[2021-01-28] MEDS: HYDROcodone/Acetaminophen 5/325 mg Tablet PO PRN ×3 (00:56→10:01)
[2021-01-28] MEDS: Piperacillin/Tazobactam 3.375 GM in Sodium Chloride 0.9% 100 ML IVPB SCH ×3 (05:00→20:11)
[2021-01-28 06:33] LABS: Anion Gap 9 mmol/L (10-20); BUN (Urea Nitrogen) 13 mg/dL (9.8-20.1); Calc. Creatinine Clearance 56 mL/min (70-130); Calcium 8.6 mg/dL (7.8-10.44); Carbon Dioxide 29 mmol/L (23-31); Chloride 103 mmol/L (98-107); Glucose 103 mg/dL (83-110); Iron 13 ug/dL (50-170); Iron Binding Capacity, Total 288 mcg/dL (265-497); Potassium 3.7 mmol/L (3.5-5.1); Sodium 137 mmol/L (136-145)
[2021-01-28 06:46] LABS: #Eosinphils 0.2 thou/uL (0.0-0.7); #Lymphocytes 1.1 thou/uL (1.20-3.40); #Monocytes 0.8 thou/uL (0.11-0.59); #Neutrophils 7.5 thou/uL (1.40-6.50); %Basophils 0.3 % (0.0-1.0); %Eosinophils 2.3 % (0.0-10.0); %Lymphocytes 11.2 % (21.0-51.0); %Monocytes 8.3 % (0.0-10.0); %Neutrophils 77.8 % (42.0-75.0); Hemoglobin 7.4 g/dL (12.0-16.0); Mean Corpuscular HGB CONC 33.2 g/dL (32.0-36.0); Mean Corpuscular Hemoglobin 31.9 pg (27.0-31.0); Mean Corpuscular Volume 96.2 fL (78.0-98.0); Mean Platelet Volume 7.3 fL (7.4-10.4); Platelet Count 270 thou/uL (130-400); RBC Distribution Width 12.6 % (11.5-14.5); Red Blood Cell (RBC) Count 2.31 mill/uL (4.20-5.40); White Blood Cell (WBC) Count 9.6 thou/uL (4.8-10.8)
[2021-01-28 06:49] LABS: Ferritin 47.54 ng/mL (10-291)
[2021-01-28] MEDS ORDERED: Heparin 5,000 UNITS/ML VIAL ONE (08:30)
[2021-01-28] MEDS ORDERED: TRIAMTERENE 50 MG PO SCH (09:00)
[2021-01-28] MEDS: Clarithromycin 500 MG TAB PO SCH ×2 (09:58→22:45)
[2021-01-28] MEDS: Dronedarone HCl 400 MG TAB PO SCH ×2 (09:59→22:45)
[2021-01-28] MEDS: predniSONE 1 MG TAB PO SCH (09:59)
[2021-01-28] MEDS: Cholecalciferol 1,000 UNITS (25 MCG) TAB PO SCH (10:00)
[2021-01-28] MEDS: Calcium Carbonate 600 MG + Vit D TAB PO SCH ×2 (10:00→22:45)
[2021-01-28] MEDS: predniSONE 5 MG TAB PO SCH (10:00)
[2021-01-28] MEDS: Multivit, Therapeutic 1 TAB PO SCH (10:01)
[2021-01-28] MEDS: Gabapentin 300 MG CAP PO SCH ×3 (10:01→22:45)
[2021-01-28] MEDS: Polyethylene Glycol 3350 17 GM Packet PO SCH ×2 (10:01→22:46)
[2021-01-28 10:52] LABS: Pleural Fluid, Protein 3.5 g/dL
[2021-01-28] MEDS ORDERED: EPINEPHrine 1 MG/ML AMP ONE (11:54)
[2021-01-28] MEDS ORDERED: Bupivacaine PF 0.5% 30 ML VIAL ONE (11:54)
[2021-01-28] MEDS ORDERED: Fentanyl 100 MCG/2 ML VIAL ONE ×3 (11:59→14:46)
[2021-01-28] MEDS ORDERED: Sodium Chloride 0.9% 100 ML ONE ×2 (12:23→20:02)
[2021-01-28] MEDS ORDERED: Piperacillin/Tazobactam 3.375 GM VIAL ONE ×2 (12:23→20:01)
[2021-01-28 12:26] LABS: RBC Count-Automated (BF) Greater than 890000 /cu.mm; WBC/Nucleated-Auto (BF) 2931 uL
[2021-01-28 12:43] LABS: Body Fluid Source Thoracentesis Fluid
[2021-01-28] MEDS ORDERED: Ondansetron PF 4 MG/2 ML Vial ONE (12:43)
[2021-01-28] MEDS ORDERED: Glycopyrrolate 0.2 MG/ML 5 ML SYRINGE ONE (12:43)
[2021-01-28] MEDS ORDERED: Rocuronium Bromide 10 MG/ML (10ML VIAL) ONE (12:43)
[2021-01-28] MEDS ORDERED: PROPOFOL 200 MG/20 ML VIAL ONE (12:43)
[2021-01-28] MEDS ORDERED: Lidocaine 1% PF 5 ML VIAL ONE (12:43)
[2021-01-28] MEDS ORDERED: Succinylcholine 200 MG/10 ml SYRINGE FS ONE (12:43)
[2021-01-28] MEDS ORDERED: Dexamethasone 20 MG/5 ML VIAL ONE (12:43)
[2021-01-28 12:44] LABS: BF Color Red; Clarity Cloudy/Turbid (Clear); Tube # EDTA
[2021-01-28 12:56] LABS: BF Segmented Neutrophils 67 %; Cell Count Non Hematic 23 %; Eosinophils 3 %; Lymphocytes 7 %
[2021-01-28] MEDS ORDERED: Ondansetron HCl/PF 4 MG/2 ML Vial IVP PRN (14:21)
[2021-01-28] MEDS ORDERED: Promethazine HCl 25 MG/ML VIAL IVPB PRN (14:21)
[2021-01-28] MEDS ORDERED: Promethazine HCl 25 MG/ML VIAL IM PRN ×2 (14:21→14:23)
[2021-01-28] MEDS ORDERED: diphenhydrAMINE 50 MG/ML VIAL IM PRN (14:23)
[2021-01-28] MEDS ORDERED: diphenhydrAMINE 25 MG CAP PO PRN (14:23)
[2021-01-28] MEDS ORDERED: diphenhydrAMINE 50 MG/ML VIAL IVP PRN (14:23)
[2021-01-28] MEDS ORDERED: Ondansetron PF 4 MG/2 ML Vial IVP PRN ×2 (14:23→15:17)
[2021-01-28] MEDS ORDERED: Naloxone HCl 0.4 mg/ml Vial IV PRN (14:23)
[2021-01-28] MEDS ORDERED: Zolpidem Tartrate 5 MG TAB PO PRN (14:23)
[2021-01-28] MEDS ORDERED: Communication Order-Pharmacy FS SCH (14:30)
[2021-01-28] MEDS ORDERED: Midazolam HCl 2 mg/2 ml Vial ONE (14:47)
[2021-01-28] MEDS ORDERED: HYDROmorphone 2 MG/ML VIAL ONE (14:48)
[2021-01-28] MEDS ORDERED: Lactated Ringer's 1,000 ML IV SCH (15:17)
[2021-01-28] MEDS ORDERED: niCARdipine 25 MG in Sodium Chloride 0.9% 250 ML 240 ML IVPB PRN (15:17)
[2021-01-28] MEDS ORDERED: Bisacodyl 10 MG SUPP PR PRN (15:17)
[2021-01-28] MEDS ORDERED: Bisacodyl 5 MG TAB PO PRN (15:17)
[2021-01-28] MEDS ORDERED: Phenylephrine 40 MG/NS 250 ML 40 MG in Premix Bag 1 BAG IVPB PRN (15:29)
[2021-01-28 15:55] LABS: Hemoglobin 9.8 g/dL (12.0-16.0); Platelet Count 264 thou/uL (130-400)
[2021-01-28] MEDS ORDERED: Promethazine HCl 25 MG/ML VIAL ONE (16:26)
[2021-01-28] MEDS ORDERED: HYDROmorphone 0.5 MG/0.5 ML SYRINGE ONE (21:41)
[2021-01-28] MEDS: Simvastatin 10 MG TAB PO SCH (22:46)
[2021-01-29 04:21] LABS: #Eosinphils 0.1 thou/uL (0.0-0.7); #Lymphocytes 0.5 thou/uL (1.20-3.40); #Monocytes 0.3 thou/uL (0.11-0.59); #Neutrophils 14.6 thou/uL (1.40-6.50); %Eosinophils 0.4 % (0.0-10.0); %Lymphocytes 2.9 % (21.0-51.0); %Neutrophils 94.7 % (42.0-75.0); Mean Corpuscular HGB CONC 33.7 g/dL (32.0-36.0); Mean Corpuscular Hemoglobin 31.7 pg (27.0-31.0); Mean Corpuscular Volume 94.3 fL (78.0-98.0); Mean Platelet Volume 7.3 fL (7.4-10.4); Platelet Count 267 thou/uL (130-400); RBC Distribution Width 13.2 % (11.5-14.5); Red Blood Cell (RBC) Count 2.84 mill/uL (4.20-5.40); White Blood Cell (WBC) Count 15.4 thou/uL (4.8-10.8)
[2021-01-29 04:36] LABS: Anion Gap 8 mmol/L (10-20); BUN (Urea Nitrogen) 13 mg/dL (9.8-20.1); Calc. Creatinine Clearance 64 mL/min (70-130); Calcium 7.9 mg/dL (7.8-10.44); Carbon Dioxide 24 mmol/L (23-31); Chloride 106 mmol/L (98-107); Glucose 123 mg/dL (83-110); Potassium 4.3 mmol/L (3.5-5.1); Sodium 134 mmol/L (136-145)
[2021-01-29] MEDS: Piperacillin/Tazobactam 3.375 GM in Sodium Chloride 0.9% 100 ML IVPB SCH ×3 (05:04→19:59)
[2021-01-29] MEDS: Polyethylene Glycol 3350 17 GM Packet PO SCH ×2 (09:55→20:02)
[2021-01-29] MEDS: Dronedarone HCl 400 MG TAB PO SCH ×2 (09:55→17:38)
[2021-01-29] MEDS: Gabapentin 300 MG CAP PO SCH ×3 (09:55→20:01)
[2021-01-29] MEDS: Calcium Carbonate 600 MG + Vit D TAB PO SCH ×2 (09:55→20:01)
[2021-01-29] MEDS: Multivit, Therapeutic 1 TAB PO SCH (09:57)
[2021-01-29] MEDS: Cholecalciferol 1,000 UNITS (25 MCG) TAB PO SCH (09:57)
[2021-01-29] MEDS: predniSONE 5 MG TAB PO SCH (09:58)
[2021-01-29] MEDS: predniSONE 1 MG TAB PO SCH (09:58)
[2021-01-29] MEDS: Clarithromycin 500 MG TAB PO SCH ×2 (10:09→20:01)
[2021-01-29] MEDS: Acetaminophen 325 MG TAB PO PRN (11:24)
[2021-01-29] MEDS ORDERED: Diltiazem 125 MG in Sodium Chloride 0.9% 100 ML IVPB SCH (13:30)
[2021-01-29] MEDS ORDERED: Fentanyl CADD 100 ML ONE (14:33)
[2021-01-29] MEDS: Amiodarone 450 MG in Dextrose 5% in Water 250 ML IVPB SCH (18:49)
[2021-01-29] MEDS: Simvastatin 10 MG TAB PO SCH (20:02)
[2021-01-29] MEDS: Enoxaparin Sodium 30 MG/0.3 ML SYRINGE SC SCH (20:02)
[2021-01-30] MEDS: Amiodarone 450 MG in Dextrose 5% in Water 250 ML IVPB SCH (02:58)
[2021-01-30] MEDS: Piperacillin/Tazobactam 3.375 GM in Sodium Chloride 0.9% 100 ML IVPB SCH ×3 (02:58→21:01)
[2021-01-30] MEDS: Gabapentin 300 MG CAP PO SCH ×3 (08:55→21:02)
[2021-01-30] MEDS: Clarithromycin 500 MG TAB PO SCH ×2 (08:55→21:03)
[2021-01-30] MEDS: Calcium Carbonate 600 MG + Vit D TAB PO SCH ×2 (08:55→21:02)
[2021-01-30] MEDS: Multivit, Therapeutic 1 TAB PO SCH (08:55)
[2021-01-30] MEDS: Polyethylene Glycol 3350 17 GM Packet PO SCH (08:55)
[2021-01-30] MEDS: predniSONE 5 MG TAB PO SCH (08:56)
[2021-01-30] MEDS: Cholecalciferol 1,000 UNITS (25 MCG) TAB PO SCH (08:56)
[2021-01-30] MEDS: Acetaminophen 500 MG TAB PO SCH ×3 (13:05→23:18)
[2021-01-30] MEDS ORDERED: Amiodarone 200 MG TAB PO SCH (16:00)
[2021-01-30] MEDS: Simvastatin 10 MG TAB PO SCH (21:02)
[2021-01-30] MEDS: Amiodarone 200 MG TAB PO SCH (21:02)
[2021-01-30] MEDS: Enoxaparin Sodium 30 MG/0.3 ML SYRINGE SC SCH (21:06)
[2021-01-31] MEDS: Piperacillin/Tazobactam 3.375 GM in Sodium Chloride 0.9% 100 ML IVPB SCH ×3 (04:07→20:54)
[2021-01-31] MEDS: fentaNYL Citrate/PF 2,000 MCG in Sodium Chloride 0.9% 60 ML IV PRN (05:51)
[2021-01-31] MEDS: Amiodarone 450 MG in Dextrose 5% in Water 250 ML IVPB SCH (06:06)
[2021-01-31] MEDS: Acetaminophen 500 MG TAB PO SCH ×4 (06:07→23:54)
[2021-01-31] MEDS: Polyethylene Glycol 3350 17 GM Packet PO SCH ×2 (06:07→15:26)
[2021-01-31] MEDS: predniSONE 5 MG TAB PO SCH (08:38)
[2021-01-31] MEDS: Clarithromycin 500 MG TAB PO SCH ×2 (08:38→20:53)
[2021-01-31] MEDS: Gabapentin 300 MG CAP PO SCH ×3 (08:38→20:53)
[2021-01-31] MEDS: Calcium Carbonate 600 MG + Vit D TAB PO SCH ×2 (08:38→20:53)
[2021-01-31] MEDS: Amiodarone 200 MG TAB PO SCH ×3 (08:39→20:53)
[2021-01-31] MEDS: Multivit, Therapeutic 1 TAB PO SCH (08:39)
[2021-01-31] MEDS: Cholecalciferol 1,000 UNITS (25 MCG) TAB PO SCH (08:39)
[2021-01-31 09:40] LABS: #Eosinphils 0.3 thou/uL (0.0-0.7); #Lymphocytes 1.1 thou/uL (1.20-3.40); #Monocytes 0.9 thou/uL (0.11-0.59); #Neutrophils 9.1 thou/uL (1.40-6.50); %Basophils 0.1 % (0.0-1.0); %Eosinophils 2.5 % (0.0-10.0); %Lymphocytes 9.8 % (21.0-51.0); %Neutrophils 79.7 % (42.0-75.0); Hemoglobin 9.6 g/dL (12.0-16.0); Mean Corpuscular HGB CONC 33.3 g/dL (32.0-36.0); Mean Corpuscular Hemoglobin 31.8 pg (27.0-31.0); Mean Corpuscular Volume 95.5 fL (78.0-98.0); Mean Platelet Volume 6.8 fL (7.4-10.4); Platelet Count 279 thou/uL (130-400); RBC Distribution Width 12.9 % (11.5-14.5); White Blood Cell (WBC) Count 11.4 thou/uL (4.8-10.8)
[2021-01-31 09:52] LABS: Anion Gap 9 mmol/L (10-20); BUN (Urea Nitrogen) 13 mg/dL (9.8-20.1); Calc. Creatinine Clearance 62 mL/min (70-130); Calcium 8.4 mg/dL (7.8-10.44); Carbon Dioxide 28 mmol/L (23-31); Chloride 104 mmol/L (98-107); Glucose 116 mg/dL (83-110); Potassium 3.7 mmol/L (3.5-5.1); Sodium 137 mmol/L (136-145)
[2021-01-31] MEDS: Enoxaparin Sodium 30 MG/0.3 ML SYRINGE SC SCH (20:53)
[2021-01-31] MEDS: Simvastatin 10 MG TAB PO SCH (20:53)
[2021-02-01] MEDS: Piperacillin/Tazobactam 3.375 GM in Sodium Chloride 0.9% 100 ML IVPB SCH ×3 (03:20→20:54)
[2021-02-01 04:54] LABS: #Basophils 0.1 thou/uL (0.0-0.2); #Eosinphils 0.4 thou/uL (0.0-0.7); #Monocytes 0.7 thou/uL (0.11-0.59); #Neutrophils 5.9 thou/uL (1.40-6.50); %Basophils 1.2 % (0.0-1.0); %Eosinophils 4.7 % (0.0-10.0); %Lymphocytes 12.5 % (21.0-51.0); %Monocytes 8.5 % (0.0-10.0); %Neutrophils 73.1 % (42.0-75.0); Hemoglobin 8.7 g/dL (12.0-16.0); Mean Corpuscular HGB CONC 33.7 g/dL (32.0-36.0); Mean Corpuscular Hemoglobin 31.9 pg (27.0-31.0); Mean Corpuscular Volume 94.7 fL (78.0-98.0); Platelet Count 242 thou/uL (130-400); RBC Distribution Width 12.8 % (11.5-14.5); Red Blood Cell (RBC) Count 2.74 mill/uL (4.20-5.40)
[2021-02-01 05:17] LABS: Anion Gap 6 mmol/L (10-20); BUN (Urea Nitrogen) 12 mg/dL (9.8-20.1); Calc. Creatinine Clearance 65 mL/min (70-130); Calcium 7.9 mg/dL (7.8-10.44); Carbon Dioxide 30 mmol/L (23-31); Chloride 105 mmol/L (98-107); Glucose 89 mg/dL (83-110); Potassium 3.7 mmol/L (3.5-5.1); Sodium 137 mmol/L (136-145)
[2021-02-01] MEDS: Polyethylene Glycol 3350 17 GM Packet PO SCH ×2 (05:25→15:15)
[2021-02-01] MEDS: Acetaminophen 500 MG TAB PO SCH ×4 (05:25→23:33)
[2021-02-01] MEDS: Multivit, Therapeutic 1 TAB PO SCH (09:36)
[2021-02-01] MEDS: Amiodarone 200 MG TAB PO SCH ×3 (09:36→20:55)
[2021-02-01] MEDS: Clarithromycin 500 MG TAB PO SCH ×2 (09:36→21:05)
[2021-02-01] MEDS: Cholecalciferol 1,000 UNITS (25 MCG) TAB PO SCH (09:36)
[2021-02-01] MEDS: Ethambutol HCl 400 MG TAB PO SCH (09:36)
[2021-02-01] MEDS: predniSONE 5 MG TAB PO SCH (09:36)
[2021-02-01] MEDS: Calcium Carbonate 600 MG + Vit D TAB PO SCH ×2 (09:37→20:55)
[2021-02-01] MEDS: Gabapentin 300 MG CAP PO SCH ×3 (09:37→20:56)
[2021-02-01] MEDS: fentaNYL Citrate/PF 2,000 MCG in Sodium Chloride 0.9% 60 ML IV PRN (14:45)
[2021-02-01] MEDS: Enoxaparin Sodium 30 MG/0.3 ML SYRINGE SC SCH (20:55)
[2021-02-01] MEDS: Simvastatin 10 MG TAB PO SCH (20:55)
[2021-02-02] MEDS: Piperacillin/Tazobactam 3.375 GM in Sodium Chloride 0.9% 100 ML IVPB SCH (04:35)
[2021-02-02 05:06] LABS: #Eosinphils 0.5 thou/uL (0.0-0.7); #Monocytes 0.6 thou/uL (0.11-0.59); #Neutrophils 5.3 thou/uL (1.40-6.50); %Basophils 0.1 % (0.0-1.0); %Eosinophils 6.4 % (0.0-10.0); %Lymphocytes 13.7 % (21.0-51.0); %Monocytes 7.6 % (0.0-10.0); %Neutrophils 72.2 % (42.0-75.0); Hemoglobin 8.5 g/dL (12.0-16.0); Mean Corpuscular HGB CONC 33.2 g/dL (32.0-36.0); Mean Corpuscular Hemoglobin 31.2 pg (27.0-31.0); Platelet Count 249 thou/uL (130-400); RBC Distribution Width 12.6 % (11.5-14.5); Red Blood Cell (RBC) Count 2.72 mill/uL (4.20-5.40); White Blood Cell (WBC) Count 7.3 thou/uL (4.8-10.8)
[2021-02-02 05:24] LABS: Anion Gap 8 mmol/L (10-20); BUN (Urea Nitrogen) 13 mg/dL (9.8-20.1); Calc. Creatinine Clearance 73 mL/min (70-130); Carbon Dioxide 29 mmol/L (23-31); Chloride 106 mmol/L (98-107); Glucose 101 mg/dL (83-110); Potassium 3.7 mmol/L (3.5-5.1); Sodium 139 mmol/L (136-145)
[2021-02-02] MEDS: Polyethylene Glycol 3350 17 GM Packet PO SCH (05:27)
[2021-02-02] MEDS: Acetaminophen 500 MG TAB PO SCH (05:27)
[2021-02-02] MEDS: Calcium Carbonate 600 MG + Vit D TAB PO SCH ×2 (08:52→21:01)
[2021-02-02] MEDS: Gabapentin 300 MG CAP PO SCH ×3 (08:52→21:02)
[2021-02-02] MEDS: Amiodarone 200 MG TAB PO SCH ×3 (08:52→21:01)
[2021-02-02] MEDS: Ferrex 150 Plus (iron poly cmplx) PO SCH (08:52)
[2021-02-02] MEDS: Clarithromycin 500 MG TAB PO SCH ×2 (08:52→21:01)
[2021-02-02] MEDS: Multivit, Therapeutic 1 TAB PO SCH (08:53)
[2021-02-02] MEDS: Furosemide 40 MG TAB PO SCH (08:53)
[2021-02-02] MEDS: Cholecalciferol 1,000 UNITS (25 MCG) TAB PO SCH (08:53)
[2021-02-02] MEDS: predniSONE 5 MG TAB PO SCH (08:53)
[2021-02-02] MEDS: Ethambutol HCl 400 MG TAB PO SCH (08:53)
[2021-02-02] MEDS ORDERED: Polyethylene Glycol 3350 17 GM Packet PO PRN (10:36)
[2021-02-02] MEDS: Enoxaparin Sodium 30 MG/0.3 ML SYRINGE SC SCH (21:01)
[2021-02-02] MEDS: Simvastatin 10 MG TAB PO SCH (21:03)
[2021-02-03] MEDS: Clarithromycin 500 MG TAB PO SCH ×2 (08:51→20:53)
[2021-02-03] MEDS: Calcium Carbonate 600 MG + Vit D TAB PO SCH ×2 (08:51→20:52)
[2021-02-03] MEDS: Gabapentin 300 MG CAP PO SCH ×3 (08:51→20:53)
[2021-02-03] MEDS: Amiodarone 200 MG TAB PO SCH ×3 (08:51→20:52)
[2021-02-03] MEDS: Ferrex 150 Plus (iron poly cmplx) PO SCH (08:51)
[2021-02-03] MEDS: Furosemide 40 MG TAB PO SCH (08:52)
[2021-02-03] MEDS: Multivit, Therapeutic 1 TAB PO SCH (08:52)
[2021-02-03] MEDS: predniSONE 5 MG TAB PO SCH (08:52)
[2021-02-03] MEDS: Cholecalciferol 1,000 UNITS (25 MCG) TAB PO SCH (08:52)
[2021-02-03] MEDS: Ethambutol HCl 400 MG TAB PO SCH (08:53)
[2021-02-03] MEDS ORDERED: Losartan 25 MG TAB PO SCH (09:00)
[2021-02-03] MEDS: Enoxaparin Sodium 30 MG/0.3 ML SYRINGE SC SCH (20:53)
[2021-02-03] MEDS: Simvastatin 10 MG TAB PO SCH (20:55)
[2021-02-04] MEDS ORDERED: HYDROcodone/Acetaminophen 5/325 mg Tablet PO PRN (07:54)
[2021-02-04] MEDS ORDERED: Fentanyl 100 MCG/2 ML VIAL SLOW IVP PRN ×2 (07:54→10:37)
[2021-02-04] MEDS: Amiodarone 200 MG TAB PO SCH ×3 (08:03→21:05)
[2021-02-04] MEDS: Acetaminophen 325 MG TAB PO PRN (08:04)
[2021-02-04] MEDS: Furosemide 40 MG TAB PO SCH (08:04)
[2021-02-04] MEDS: Multivit, Therapeutic 1 TAB PO SCH (08:04)
[2021-02-04] MEDS: Calcium Carbonate 600 MG + Vit D TAB PO SCH ×2 (08:04→21:05)
[2021-02-04] MEDS: Clarithromycin 500 MG TAB PO SCH ×2 (08:04→21:06)
[2021-02-04] MEDS: Gabapentin 300 MG CAP PO SCH ×3 (08:04→21:05)
[2021-02-04] MEDS: Cholecalciferol 1,000 UNITS (25 MCG) TAB PO SCH (08:04)
[2021-02-04] MEDS: predniSONE 5 MG TAB PO SCH (08:04)
[2021-02-04] MEDS: Ethambutol HCl 400 MG TAB PO SCH (08:05)
[2021-02-04] MEDS: Ferrex 150 Plus (iron poly cmplx) PO SCH (08:28)
[2021-02-04] MEDS ORDERED: traMADol HCl 50 MG TAB PO PRN (10:38)
[2021-02-04 12:08] VITALS: BMI 25.9
[2021-02-04] MEDS: Simvastatin 10 MG TAB PO SCH (21:05)
[2021-02-04] MEDS: Enoxaparin Sodium 30 MG/0.3 ML SYRINGE SC SCH (21:05)
[2021-02-05 05:01] LABS: #Eosinphils 0.3 thou/uL (0.0-0.7); #Lymphocytes 0.8 thou/uL (1.20-3.40); #Monocytes 0.6 thou/uL (0.11-0.59); #Neutrophils 5.1 thou/uL (1.40-6.50); %Basophils 0.2 % (0.0-1.0); %Eosinophils 3.8 % (0.0-10.0); %Lymphocytes 12.2 % (21.0-51.0); %Monocytes 9.4 % (0.0-10.0); %Neutrophils 74.4 % (42.0-75.0); Hemoglobin 8.2 g/dL (12.0-16.0); Mean Corpuscular HGB CONC 33.5 g/dL (32.0-36.0); Mean Corpuscular Hemoglobin 31.1 pg (27.0-31.0); Mean Corpuscular Volume 92.7 fL (78.0-98.0); Mean Platelet Volume 7.1 fL (7.4-10.4); Platelet Count 252 thou/uL (130-400); Red Blood Cell (RBC) Count 2.64 mill/uL (4.20-5.40); White Blood Cell (WBC) Count 6.8 thou/uL (4.8-10.8)
[2021-02-05] MEDS: Acetaminophen 325 MG TAB PO PRN (05:26)
[2021-02-05] MEDS: HYDROcodone/Acetaminophen 10/325 mg Tablet PO PRN ×4 (06:29→23:26)
[2021-02-05] MEDS ORDERED: Acetaminophen 325 MG TAB PO SCH (07:00)
[2021-02-05] MEDS ORDERED: Acetaminophen 500 MG TAB PO SCH (09:15)
[2021-02-05] MEDS: Ethambutol HCl 400 MG TAB PO SCH (09:45)
[2021-02-05] MEDS: Clarithromycin 500 MG TAB PO SCH ×2 (09:46→20:33)
[2021-02-05] MEDS: Calcium Carbonate 600 MG + Vit D TAB PO SCH ×2 (09:47→20:33)
[2021-02-05] MEDS: Furosemide 40 MG TAB PO SCH (09:48)
[2021-02-05] MEDS: Amiodarone 200 MG TAB PO SCH ×2 (09:48→20:33)
[2021-02-05] MEDS: Multivit, Therapeutic 1 TAB PO SCH (09:48)
[2021-02-05] MEDS: Gabapentin 300 MG CAP PO SCH ×3 (09:48→20:33)
[2021-02-05] MEDS: predniSONE 5 MG TAB PO SCH (09:48)
[2021-02-05] MEDS: Cholecalciferol 1,000 UNITS (25 MCG) TAB PO SCH (09:57)
[2021-02-05] MEDS: Ferrex 150 Plus (iron poly cmplx) PO SCH (09:58)
[2021-02-05] MEDS: Simvastatin 10 MG TAB PO SCH (20:33)
[2021-02-05] MEDS: Enoxaparin Sodium 30 MG/0.3 ML SYRINGE SC SCH (20:34)
[2021-02-06] MEDS: HYDROcodone/Acetaminophen 10/325 mg Tablet PO PRN ×2 (03:38→08:21)
[2021-02-06 07:35] VITALS: BP 105/54; TEMP 97.7
[2021-02-06] MEDS: Gabapentin 300 MG CAP PO SCH (08:19)
[2021-02-06] MEDS: Clarithromycin 500 MG TAB PO SCH (08:20)
[2021-02-06] MEDS: Cholecalciferol 1,000 UNITS (25 MCG) TAB PO SCH (08:20)
[2021-02-06] MEDS: predniSONE 5 MG TAB PO SCH (08:20)
[2021-02-06] MEDS: Calcium Carbonate 600 MG + Vit D TAB PO SCH (08:20)
[2021-02-06] MEDS: Amiodarone 200 MG TAB PO SCH (08:22)
[2021-02-06] MEDS: Ethambutol HCl 400 MG TAB PO SCH (08:22)
[2021-02-06] MEDS: Furosemide 40 MG TAB PO SCH (08:22)
[2021-02-06] MEDS: Multivit, Therapeutic 1 TAB PO SCH (08:22)
[2021-02-06] MEDS: Ferrex 150 Plus (iron poly cmplx) PO SCH (08:23)
== END 2021-02-06 11:30 | disposition home health service (06) | DRG 166 ==
LOC: ERS 16:03 → 2NO 18:09 → CCU 01-28 15:16 → 2NO 01-30 01:27
PROVIDERS: ADMIT Internal Medicine; ATTEND Family Medicine
PROC: 0PB10ZZ Excision of 1 to 2 Ribs, Open Approach (ICD-10-PCS; principal; 2021-01-28)
PROC: 30233N1 Transfusion of Nonautologous Red Blood Cells into Peripheral Vein, Percutaneous Approach (ICD-10-PCS; 2021-01-28)
PROC: 0W993ZZ Drainage of Right Pleural Cavity, Percutaneous Approach (ICD-10-PCS; 2021-01-28)
DX: J95.89 Other postprocedural complications and disorders of respiratory system, not elsewhere classified (principal); J96.21 Acute and chronic respiratory failure with hypoxia; J94.2 Hemothorax; A31.0 Pulmonary mycobacterial infection; S22.41XA Multiple fractures of ribs, right side, initial encounter for closed fracture; J90 Pleural effusion, not elsewhere classified; J98.11 Atelectasis; E24.9 Cushing's syndrome, unspecified; I47.1 Supraventricular tachycardia; I10 Essential (primary) hypertension; E78.00 Pure hypercholesterolemia, unspecified; H54.40 Blindness, one eye, unspecified eye; M31.6 Other giant cell arteritis; I48.0 Paroxysmal atrial fibrillation; I25.10 Atherosclerotic heart disease of native coronary artery without angina pectoris; K21.9 Gastro-esophageal reflux disease without esophagitis; E78.5 Hyperlipidemia, unspecified; M19.90 Unspecified osteoarthritis, unspecified site; G43.909 Migraine, unspecified, not intractable, without status migrainosus; J84.10 Pulmonary fibrosis, unspecified; X58.XXXA Exposure to other specified factors, initial encounter; M54.12 Radiculopathy, cervical region; D50.0 Iron deficiency anemia secondary to blood loss (chronic); Z98.890 Other specified postprocedural states; Z79.01 Long term (current) use of anticoagulants; Z79.899 Other long term (current) drug therapy; Y83.8 Other surgical procedures as the cause of abnormal reaction of the patient, or of later complication, without mention of misadventure at the time of the procedure
CPT/HCPCS: 36415; 36430; 71045; 80048; 80053; 82150; 82607; 82728; 82746; 82945; 83540; 83550; 83615; 83986; 84157; 84443; 84478; 84484; 85025; 85060; 86850; 86900; 86901; 87070; 87116; 87205; 87206; 88112; 88305; 89051; 93005; 96374; J0171; J0282; J1100; J1170; J1642; J1650; J2250; J2270; J2405; J2543; J2550; J2704; J3010; J3490; J7070; J7512; P9016; S0020

== ENCOUNTER 2021-04-22 09:54 | Outpatient (CLI) | payer MEDICARE | END 2021-04-22 09:55 | disposition home or self-care (01) | LOC: RAD 09:54 | PROVIDERS: ATTEND Internal Medicine Pulmonary Disease | DX: R06.00 Dyspnea, unspecified (principal) | CPT/HCPCS: 71046 ==

== ENCOUNTER 2021-09-10 17:50 | Inpatient (IN) | payer MEDICARE ==
[2021-09-10] MEDS ORDERED: Morphine 4 MG/ML VIAL ONE ×2 (18:18→19:12)
[2021-09-10] MEDS ORDERED: Ondansetron PF 4 MG/2 ML Vial ONE (18:19)
[2021-09-10] MEDS ORDERED: Ketorolac Tromethamine 30 MG/ML VIAL ONE (18:19)
[2021-09-10 19:40] LABS: #Lymphocytes 0.7 thou/uL (1.20-3.40); #Monocytes 0.8 thou/uL (0.11-0.59); #Neutrophils 10.3 thou/uL (1.40-6.50); %Eosinophils 0.1 % (0.0-10.0); %Lymphocytes 5.6 % (21.0-51.0); %Monocytes 6.6 % (0.0-10.0); %Neutrophils 87.6 % (42.0-75.0); Hemoglobin 13.2 g/dL (12.0-16.0); Mean Corpuscular HGB CONC 33.2 g/dL (32.0-36.0); Mean Corpuscular Hemoglobin 31.9 pg (27.0-31.0); Mean Platelet Volume 6.7 fL (7.4-10.4); Platelet Count 186 thou/uL (130-400); RBC Distribution Width 12.9 % (11.5-14.5); Red Blood Cell (RBC) Count 4.15 mill/uL (4.20-5.40); White Blood Cell (WBC) Count 11.8 thou/uL (4.8-10.8)
[2021-09-10 19:48] LABS: INR-International Normal Ratio 1.1; PTT 36.5 sec (22.9-36.1); Prothrombin Time 14.2 sec (12.0-14.7)
[2021-09-10 20:01] LABS: ALT (SGPT) 19 U/L (8-55); AST (SGOT) 23 U/L (5-34); Albumin 3.6 g/dL (3.4-4.8); Alkaline Phosphatase 57 U/L (40-110); Anion Gap 13 mmol/L (10-20); BUN (Urea Nitrogen) 23 mg/dL (9.8-20.1); Bilirubin, Total 0.8 mg/dL (0.2-1.2); Calc. Creatinine Clearance 0 mL/min (70-130); Calcium 8.3 mg/dL (7.8-10.44); Carbon Dioxide 24 mmol/L (23-31); Chloride 105 mmol/L (98-107); Globulin 1.6 g/dL (2.4-3.5); Glucose 116 mg/dL (83-110); Potassium 3.5 mmol/L (3.5-5.1); Protein, Total 5.2 g/dL (5.8-8.1); Sodium 138 mmol/L (136-145)
[2021-09-10 20:22] LABS: CKMB 4.8 ng/mL (0-6.6)
[2021-09-10 23:51] LABS: Troponin I 0.054 ng/mL (< 0.028)
[2021-09-11 01:49] LABS: Bacteria/HPF None Seen HPF (None Seen); Bilirubin Negative (Negative); Blood, Urine Negative (Negative); Clarity Clear (Clear); Glucose, Urine (Dipstick) Normal (Negative); Ketone, Urine Negative (Negative); Leukocyte 75 Leu/uL (Negative); Nitrite Negative (Negative); Protein, Urine (Dipstick) Negative (Neg-Trace); RBC/HPF 0-3 HPF (0-3); Specific Gravity, Urine 1.013 (1.002-1.036); Urobilinogen Normal mg/dL (Less than 2)
[2021-09-11] MEDS ORDERED: Ketorolac Tromethamine 30 MG/ML VIAL ONE (02:01)
[2021-09-11 02:34] LABS: SARS-CoV-2 PCR by NAA Not Detected (NotDetected)
[2021-09-11] MEDS ORDERED: Dextrose 50% Abboject 50 ML SYRINGE SLOW IVP PRN (02:54)
[2021-09-11] MEDS ORDERED: hydrALAZINE 20 MG/ML VIAL SLOW IVP PRN (02:54)
[2021-09-11] MEDS ORDERED: traMADol HCl 50 MG TAB PO PRN (02:54)
[2021-09-11] MEDS ORDERED: Dextrose 5% in Water 1,000 ML IV PRN (02:54)
[2021-09-11] MEDS ORDERED: Ondansetron ODT 4 MG TAB PO PRN (02:54)
[2021-09-11] MEDS ORDERED: Ondansetron PF 4 MG/2 ML Vial IVP PRN (02:54)
[2021-09-11 03:02] VITALS: BMI 26.6
[2021-09-11] MEDS ORDERED: Famotidine 20 MG TAB PO SCH (03:15)
[2021-09-11] MEDS: Sodium Chloride 0.9% 1,000 ML IV SCH ×2 (03:18→12:35)
[2021-09-11 04:40] LABS: #Eosinphils 0.1 thou/uL (0.0-0.7); #Lymphocytes 1.1 thou/uL (1.20-3.40); #Monocytes 0.8 thou/uL (0.11-0.59); #Neutrophils 6.7 thou/uL (1.40-6.50); %Basophils 0.2 % (0.0-1.0); %Eosinophils 0.7 % (0.0-10.0); %Lymphocytes 12.5 % (21.0-51.0); %Monocytes 9.5 % (0.0-10.0); Hemoglobin 12.3 g/dL (12.0-16.0); Mean Corpuscular HGB CONC 32.9 g/dL (32.0-36.0); Mean Corpuscular Hemoglobin 32.3 pg (27.0-31.0); Mean Corpuscular Volume 98.1 fL (78.0-98.0); Mean Platelet Volume 7.2 fL (7.4-10.4); Platelet Count 158 thou/uL (130-400); RBC Distribution Width 12.9 % (11.5-14.5); White Blood Cell (WBC) Count 8.7 thou/uL (4.8-10.8)
[2021-09-11 05:04] LABS: Anion Gap 12 mmol/L (10-20); BUN (Urea Nitrogen) 17 mg/dL (9.8-20.1); Calc. Creatinine Clearance 61 mL/min (70-130); Calcium 7.7 mg/dL (7.8-10.44); Carbon Dioxide 17 mmol/L (23-31); Chloride 113 mmol/L (98-107); Glucose 94 mg/dL (83-110); Phosphorus 2.3 mg/dL (2.3-4.7); Potassium 3.6 mmol/L (3.5-5.1); Sodium 138 mmol/L (136-145)
[2021-09-11] MEDS: Ketorolac Tromethamine 30 MG/ML VIAL IVP SCH ×4 (05:38→23:40)
[2021-09-11] MEDS: Morphine 4 MG/ML VIAL SLOW IVP PRN ×2 (07:24→20:47)
[2021-09-11] MEDS ORDERED: Digoxin 0.5 MG/2 ML AMP SLOW IVP SCH (09:00)
[2021-09-11] MEDS ORDERED: Potassium Phosphate 30 MMOL in Sodium Chloride 0.9% 250 ML 250 ML IVPB SCH (09:00)
[2021-09-11] MEDS ORDERED: Sodium Chloride 0.9% 500 ML IV SCH (10:00)
[2021-09-11] MEDS: Metoprolol Tartrate 25 MG TAB PO SCH ×3 (10:05→20:46)
[2021-09-11] MEDS: Famotidine 20 MG TAB PO SCH (20:47)
[2021-09-12] MEDS: Morphine 4 MG/ML VIAL SLOW IVP PRN ×2 (02:06→19:37)
[2021-09-12] MEDS: Metoprolol Tartrate 25 MG TAB PO SCH ×4 (04:02→21:44)
[2021-09-12 05:03] LABS: #Eosinphils 0.2 thou/uL (0.0-0.7); #Lymphocytes 1.1 thou/uL (1.20-3.40); #Monocytes 0.6 thou/uL (0.11-0.59); #Neutrophils 6.4 thou/uL (1.40-6.50); %Basophils 0.2 % (0.0-1.0); %Eosinophils 2.4 % (0.0-10.0); %Lymphocytes 12.8 % (21.0-51.0); %Monocytes 7.1 % (0.0-10.0); %Neutrophils 77.5 % (42.0-75.0); Hemoglobin 11.6 g/dL (12.0-16.0); Mean Corpuscular HGB CONC 33.1 g/dL (32.0-36.0); Mean Corpuscular Hemoglobin 32.2 pg (27.0-31.0); Mean Corpuscular Volume 97.3 fL (78.0-98.0); Mean Platelet Volume 7.4 fL (7.4-10.4); Platelet Count 143 thou/uL (130-400); RBC Distribution Width 13.1 % (11.5-14.5); White Blood Cell (WBC) Count 8.2 thou/uL (4.8-10.8)
[2021-09-12 05:21] LABS: Anion Gap 10 mmol/L (10-20); BUN (Urea Nitrogen) 10 mg/dL (9.8-20.1); Calc. Creatinine Clearance 69 mL/min (70-130); Calcium 7.5 mg/dL (7.8-10.44); Carbon Dioxide 19 mmol/L (23-31); Chloride 114 mmol/L (98-107); Glucose 103 mg/dL (83-110); Magnesium 2.1 mg/dL (1.6-2.6); Potassium 3.9 mmol/L (3.5-5.1); Sodium 139 mmol/L (136-145)
[2021-09-12 05:29] LABS: Phosphorus 1.6 mg/dL (2.3-4.7)
[2021-09-12 05:37] LABS: Troponin I 0.404 ng/mL (< 0.028)
[2021-09-12] MEDS: Ketorolac Tromethamine 30 MG/ML VIAL IVP SCH ×3 (06:18→17:01)
[2021-09-12] MEDS ORDERED: ceFAZolin 2 GM/Dextrose 50 ML 2 GM in Premix Bag 1 BAG IVPB SCH (07:30)
[2021-09-12] MEDS: Acetaminophen 325 MG TAB PO PRN (07:37)
[2021-09-12] MEDS ORDERED: Potassium Phosphate 30 MMOL in Sodium Chloride 0.9% 500 ML IVPB SCH (11:00)
[2021-09-12] MEDS ORDERED: traMADol HCl 50 MG TAB PO PRN (13:31)
[2021-09-12] MEDS: predniSONE 5 MG TAB PO SCH (15:09)
[2021-09-12] MEDS ORDERED: Polyethylene Glycol 3350 17 GM Packet PO PRN (18:57)
[2021-09-12] MEDS: Calcium Carbonate 600 MG + Vit D TAB PO SCH (21:43)
[2021-09-12] MEDS: Famotidine 20 MG TAB PO SCH (21:43)
[2021-09-12] MEDS: Simvastatin 10 MG TAB PO SCH (21:43)
[2021-09-12] MEDS: Clarithromycin 500 MG TAB PO SCH (21:43)
[2021-09-12] MEDS: Ethambutol HCl 400 MG TAB PO SCH (21:44)
[2021-09-13] MEDS: Ketorolac Tromethamine 30 MG/ML VIAL IVP SCH ×2 (00:31→06:22)
[2021-09-13] MEDS: Morphine 4 MG/ML VIAL SLOW IVP PRN ×3 (02:28→21:07)
[2021-09-13] MEDS: Acetaminophen 325 MG TAB PO PRN (05:04)
[2021-09-13] MEDS ORDERED: Phenylephrine 10 MG/ML VIAL ONE (07:18)
[2021-09-13] MEDS ORDERED: Fentanyl 250 MCG/5 ML VIAL ONE ×2 (07:18→09:47)
[2021-09-13 07:39] LABS: #Eosinphils 0.2 thou/uL (0.0-0.7); #Monocytes 0.5 thou/uL (0.11-0.59); #Neutrophils 6.3 thou/uL (1.40-6.50); %Basophils 0.3 % (0.0-1.0); %Eosinophils 2.6 % (0.0-10.0); %Lymphocytes 12.5 % (21.0-51.0); %Monocytes 6.4 % (0.0-10.0); %Neutrophils 78.3 % (42.0-75.0); Hemoglobin 11.1 g/dL (12.0-16.0); Mean Corpuscular Hemoglobin 32.7 pg (27.0-31.0); Platelet Count 135 thou/uL (130-400); RBC Distribution Width 12.9 % (11.5-14.5); Red Blood Cell (RBC) Count 3.39 mill/uL (4.20-5.40); White Blood Cell (WBC) Count 8.1 thou/uL (4.8-10.8)
[2021-09-13] MEDS ORDERED: ceFAZolin 2 GM/Dextrose 50 ML IVPB ONE (07:54)
[2021-09-13] MEDS ORDERED: Dexamethasone 20 MG/5 ML VIAL ONE (08:16)
[2021-09-13] MEDS ORDERED: PROPOFOL 200 MG/20 ML VIAL ONE (08:16)
[2021-09-13] MEDS ORDERED: Lidocaine 1% PF 5 ML VIAL ONE (08:16)
[2021-09-13] MEDS ORDERED: Ondansetron PF 4 MG/2 ML Vial ONE (08:16)
[2021-09-13] MEDS ORDERED: PHENYLEPHRINE-NS 100 MCG/ML 10 ML SYRINGE ONE (08:16)
[2021-09-13 08:39] LABS: Anion Gap 11 mmol/L (10-20); BUN (Urea Nitrogen) 11 mg/dL (9.8-20.1); Calc. Creatinine Clearance 66 mL/min (70-130); Calcium 8.1 mg/dL (7.8-10.44); Carbon Dioxide 22 mmol/L (23-31); Chloride 113 mmol/L (98-107); Glucose 90 mg/dL (83-110); Magnesium 2.1 mg/dL (1.6-2.6); Phosphorus 2.2 mg/dL (2.3-4.7); Potassium 4.1 mmol/L (3.5-5.1); Sodium 142 mmol/L (136-145)
[2021-09-13] MEDS ORDERED: Potassium Phosphate 30 MMOL in Sodium Chloride 0.9% 250 ML 250 ML IVPB SCH (09:00)
[2021-09-13] MEDS ORDERED: Promethazine HCl 25 MG/ML VIAL IM PRN (09:31)
[2021-09-13] MEDS ORDERED: Promethazine HCl 25 MG/ML VIAL IVPB PRN (09:31)
[2021-09-13] MEDS ORDERED: Ondansetron HCl/PF 4 MG/2 ML Vial IVP PRN (09:31)
[2021-09-13] MEDS ORDERED: Meperidine HCl/PF 25 MG/ML VIAL SLOW IVP PRN (09:31)
[2021-09-13] MEDS: Cholecalciferol 1,000 UNITS (25 MCG) TAB PO SCH (11:00)
[2021-09-13] MEDS: Metoprolol Tartrate 25 MG TAB PO SCH ×2 (11:06→21:15)
[2021-09-13] MEDS: Calcium Carbonate 600 MG + Vit D TAB PO SCH ×2 (11:21→21:15)
[2021-09-13] MEDS: Clarithromycin 500 MG TAB PO SCH ×2 (11:50→21:16)
[2021-09-13] MEDS: Ferrex 150 Plus (iron poly cmplx) PO SCH (11:50)
[2021-09-13] MEDS: Ethambutol HCl 400 MG TAB PO SCH ×2 (11:50→21:13)
[2021-09-13] MEDS ORDERED: predniSONE 1 MG TAB PO SCH (12:00)
[2021-09-13] MEDS ORDERED: predniSONE 5 MG TAB PO SCH (12:00)
[2021-09-13] MEDS ORDERED: Ibuprofen 600 MG TAB PO PRN (12:00)
[2021-09-13] MEDS: traMADol HCl 50 MG TAB PO PRN ×3 (12:18→23:23)
[2021-09-13] MEDS ORDERED: AFRIN NASAL MIST 15 ML BOT ONE (12:36)
[2021-09-13] MEDS: Nitrofurantoin Macrocrystal 50 MG CAP PO SCH ×2 (13:17→21:17)
[2021-09-13] MEDS: predniSONE 5 MG TAB PO SCH (14:49)
[2021-09-13] MEDS: ceFAZolin 2 GM/Dextrose 50 ML 2 GM in Premix Bag 1 BAG IVPB SCH ×2 (15:30→21:14)
[2021-09-13] MEDS: Simvastatin 10 MG TAB PO SCH (21:15)
[2021-09-13] MEDS: Famotidine 20 MG TAB PO SCH (21:15)
[2021-09-13] MEDS ORDERED: Melatonin 3 MG TAB PO PRN (22:35)
[2021-09-13 23:09] LABS: Magnesium 1.9 mg/dL (1.6-2.6)
[2021-09-14] MEDS: traMADol HCl 50 MG TAB PO PRN ×2 (04:26→12:16)
[2021-09-14 05:28] LABS: Band 4 % (5-11); Hemoglobin 10.7 g/dL (12.0-16.0); Hypochromia SLIGHT = 6-15 cells (100X) (0-5/hpf); Lymphocytes 5 % (21-51); MDiff Complete? YES; Mean Corpuscular HGB CONC 32.5 g/dL (32.0-36.0); Mean Corpuscular Volume 98.4 fL (78.0-98.0); Mean Platelet Volume 7.4 fL (7.4-10.4); Monocytes 8 % (0-10); Neutrophil 83 % (42-75); Platelet Count 180 thou/uL (130-400); Platelet Morphology Comment Appears Adequate; RBC Distribution Width 12.8 % (11.5-14.5); Red Blood Cell (RBC) Count 3.33 mill/uL (4.20-5.40)
[2021-09-14 05:54] LABS: Anion Gap 12 mmol/L (10-20); BUN (Urea Nitrogen) 15 mg/dL (9.8-20.1); Calc. Creatinine Clearance 68 mL/min (70-130); Calcium 8.2 mg/dL (7.8-10.44); Carbon Dioxide 21 mmol/L (23-31); Chloride 109 mmol/L (98-107); Glucose 134 mg/dL (83-110); Phosphorus 2.8 mg/dL (2.3-4.7); Potassium 5.1 mmol/L (3.5-5.1); Sodium 137 mmol/L (136-145)
[2021-09-14] MEDS ORDERED: predniSONE 5 MG TAB PO SCH (08:00)
[2021-09-14] MEDS ORDERED: predniSONE 1 MG TAB PO SCH (08:00)
[2021-09-14] MEDS: Acetaminophen 325 MG TAB PO PRN (08:12)
[2021-09-14] MEDS ORDERED: Apixaban 5 MG TAB PO SCH (09:00)
[2021-09-14] MEDS: Calcium Carbonate 600 MG + Vit D TAB PO SCH (09:29)
[2021-09-14] MEDS: Metoprolol Tartrate 25 MG TAB PO SCH (09:29)
[2021-09-14] MEDS: Cholecalciferol 1,000 UNITS (25 MCG) TAB PO SCH (09:30)
[2021-09-14] MEDS: Nitrofurantoin Macrocrystal 50 MG CAP PO SCH (09:30)
[2021-09-14] MEDS: Clarithromycin 500 MG TAB PO SCH (09:30)
[2021-09-14] MEDS: Ethambutol HCl 400 MG TAB PO SCH (09:30)
[2021-09-14] MEDS: Ferrex 150 Plus (iron poly cmplx) PO SCH (09:35)
[2021-09-14] MEDS: Morphine 4 MG/ML VIAL SLOW IVP PRN (16:33)
[2021-09-14 19:32] VITALS: BP 120/65; TEMP 97.9
== END 2021-09-14 18:40 | DRG 492 ==
LOC: ERS 17:50 → ERHOLD 19:45 → 2NO 09-11 02:36
PROVIDERS: ADMIT Surgery; ATTEND Surgery
PROC: 0QSHXZZ Reposition Left Tibia, External Approach (ICD-10-PCS; 2021-09-10)
PROC: 0QSKXZZ Reposition Left Fibula, External Approach (ICD-10-PCS; 2021-09-10)
PROC: 0QSH06Z Reposition Left Tibia with Intramedullary Internal Fixation Device, Open Approach (ICD-10-PCS; principal; 2021-09-13)
DX: S82.142A Displaced bicondylar fracture of left tibia, initial encounter for closed fracture (principal); I21.A1 Myocardial infarction type 2; D84.81 Immunodeficiency due to conditions classified elsewhere; S82.442A Displaced spiral fracture of shaft of left fibula, initial encounter for closed fracture; Z20.822 Contact with and (suspected) exposure to COVID-19; E78.00 Pure hypercholesterolemia, unspecified; I10 Essential (primary) hypertension; H54.40 Blindness, one eye, unspecified eye; M31.6 Other giant cell arteritis; I08.3 Combined rheumatic disorders of mitral, aortic and tricuspid valves; I48.0 Paroxysmal atrial fibrillation; G43.909 Migraine, unspecified, not intractable, without status migrainosus; M19.90 Unspecified osteoarthritis, unspecified site; E78.5 Hyperlipidemia, unspecified; K21.9 Gastro-esophageal reflux disease without esophagitis; I25.10 Atherosclerotic heart disease of native coronary artery without angina pectoris; R82.71 Bacteriuria; W17.89XA Other fall from one level to another, initial encounter; Z90.2 Acquired absence of lung [part of]; Z79.899 Other long term (current) drug therapy; Z79.52 Long term (current) use of systemic steroids; Z79.01 Long term (current) use of anticoagulants; Z98.890 Other specified postprocedural states
CPT/HCPCS: 36415; 71045; 76000; 80048; 80053; 81003; 81015; 82553; 83735; 84100; 84484; 85025; 85610; 85730; 87077; 87086; 87186; 93005; 93306; 93880; C1713; C1769; G0390; J0690; J1100; J1160; J1885; J2270; J2370; J2405; J2704; J3010; J7030; J7050; J7512; U0003; U0005

== ENCOUNTER 2021-10-14 11:47 | Emergency (ER) | payer MEDICARE ==
[2021-10-14] MEDS ORDERED: Metoprolol Tartrate 50 MG TAB ONE (12:18)
[2021-10-14 12:23] LABS: #Eosinphils 0.2 thou/uL (0.0-0.7); #Lymphocytes 1.6 thou/uL (1.20-3.40); #Monocytes 0.8 thou/uL (0.11-0.59); #Neutrophils 6.5 thou/uL (1.40-6.50); %Basophils 0.2 % (0.0-1.0); %Eosinophils 1.9 % (0.0-10.0); %Lymphocytes 17.7 % (21.0-51.0); %Monocytes 8.8 % (0.0-10.0); %Neutrophils 71.4 % (42.0-75.0); Hemoglobin 14.4 g/dL (12.0-16.0); Mean Corpuscular HGB CONC 32.4 g/dL (32.0-36.0); Mean Corpuscular Hemoglobin 30.8 pg (27.0-31.0); Mean Corpuscular Volume 95.2 fL (78.0-98.0); Platelet Count 249 thou/uL (130-400); RBC Distribution Width 12.6 % (11.5-14.5); Red Blood Cell (RBC) Count 4.67 mill/uL (4.20-5.40); White Blood Cell (WBC) Count 9.1 thou/uL (4.8-10.8)
[2021-10-14 12:57] LABS: ALT (SGPT) 12 U/L (8-55); AST (SGOT) 18 U/L (5-34); Albumin 4.3 g/dL (3.4-4.8); Alkaline Phosphatase 121 U/L (40-110); Anion Gap 17 mmol/L (10-20); BUN (Urea Nitrogen) 20 mg/dL (9.8-20.1); Bilirubin, Total 0.9 mg/dL (0.2-1.2); Calc. Creatinine Clearance 0 mL/min (70-130); Calcium 9.4 mg/dL (7.8-10.44); Carbon Dioxide 27 mmol/L (23-31); Chloride 98 mmol/L (98-107); Globulin 1.9 g/dL (2.4-3.5); Glucose 105 mg/dL (83-110); Potassium 3.6 mmol/L (3.5-5.1); Protein, Total 6.2 g/dL (5.8-8.1); Sodium 138 mmol/L (136-145)
== END 2021-10-14 14:00 | disposition home or self-care (01) ==
LOC: ERS 11:47
DX: I48.91 Unspecified atrial fibrillation (principal); I10 Essential (primary) hypertension; E78.00 Pure hypercholesterolemia, unspecified; H54.40 Blindness, one eye, unspecified eye; Z79.01 Long term (current) use of anticoagulants; Z79.899 Other long term (current) drug therapy
CPT/HCPCS: 36415; 80053; 84484; 85025; 93005

== ENCOUNTER 2021-11-27 10:37 | Outpatient (CLI) | payer MEDICARE | END 2021-11-27 10:38 | disposition home or self-care (01) | LOC: RAD 10:37 | PROVIDERS: ATTEND Internal Medicine | DX: R06.00 Dyspnea, unspecified (principal) | CPT/HCPCS: 71046 ==

== ENCOUNTER 2022-02-10 13:48 | Outpatient (CLI) | payer MEDICARE | END 2022-02-10 13:49 | disposition home or self-care (01) | LOC: RAD 13:48 | DX: R06.00 Dyspnea, unspecified (principal); Z86.19 Personal history of other infectious and parasitic diseases | CPT/HCPCS: 36415; 71046; 80048; 83880; 84484; 85025 ==

== ENCOUNTER 2022-02-23 13:03 | Outpatient (CLI) | payer MEDICARE ==
[2022-02-23 15:45] LABS: #Eosinphils 0.1 10x3/uL (0.0-0.5); #Monocytes 0.6 10x3/uL (0.0-1.1); #Neutrophils 7.2 10x3/uL (1.5-8.4); %Basophils 0.3 % (0.0-2.0); %Eosinophils 1.1 % (0.0-6.0); %Lymphocytes 11.8 % (18.0-47.0); %Monocytes 6.2 % (0.0-10.0); %Neutrophils 79.7 % (40.0-75.0); Hemoglobin 13.2 g/dL (12.0-15.5); Mean Corpuscular HGB CONC 33.3 g/dL (32.0-36.0); Mean Corpuscular Hemoglobin 30.6 pg (27.0-33.0); Mean Corpuscular Volume 91.7 fl (81.6-98.3); Mean Platelet Volume 10.7 fl (7.4-10.4); Platelet Count 240 10x3/uL (150-450); RBC Distribution Width 14.3 % (11.5-14.5); Red Blood Cell (RBC) Count 4.32 10x6/uL (3.90-5.03)
[2022-02-23 16:16] LABS: ALT (SGPT) 22 U/L (8-55); AST (SGOT) 23 U/L (5-34); Albumin 4.4 g/dL (3.4-4.8); Alkaline Phosphatase 57 U/L (40-110); Anion Gap 13 mmol/L (10-20); BUN (Urea Nitrogen) 17 mg/dL (9.8-20.1); Bilirubin, Total 0.6 mg/dL (0.2-1.2); Calc. Creatinine Clearance 0 mL/min (70-130); Calcium 9.7 mg/dL (7.8-10.44); Carbon Dioxide 28 mmol/L (23-31); Chloride 102 mmol/L (98-107); Estimated GFR 64; Globulin 1.9 g/dL (2.4-3.5); Glucose 93 mg/dL (83-110); Protein, Total 6.3 g/dL (5.8-8.1); Sodium 138 mmol/L (136-145)
== END 2022-02-23 13:04 | disposition home or self-care (01) ==
LOC: LABBT 13:03
PROVIDERS: ATTEND Internal Medicine Cardiovascular Disease
DX: Z01.812 Encounter for preprocedural laboratory examination (principal); Z20.822 Contact with and (suspected) exposure to COVID-19
CPT/HCPCS: 80053; 85025; 87811

== ENCOUNTER 2022-02-26 07:02 | Day surgery (SDC) | payer MEDICARE ==
[2022-02-25 11:00] VITALS: BMI 25.0
[2022-02-26 08:25] LABS: Cardiac Risk 3.3 (Less than 4.5)
[2022-02-26] MEDS ORDERED: Iopamidol 370 76% 100 ML VIAL ONE (08:35)
[2022-02-26] MEDS ORDERED: Verapamil 5 MG/2 ML VIAL ONE (09:04)
[2022-02-26] MEDS ORDERED: Lidocaine 1% MPF 2 ML VIAL ONE (09:04)
[2022-02-26] MEDS ORDERED: Nitroglycerin 100MG/250ML BOT 250 ML ONE (09:04)
[2022-02-26] MEDS ORDERED: Heparin 10,000 UNITS/ 10 ML VIAL ONE (09:04)
[2022-02-26] MEDS ORDERED: Fentanyl 100 MCG/2 ML VIAL ONE (09:50)
[2022-02-26] MEDS ORDERED: Midazolam HCl 2 mg/2 ml Vial ONE (09:50)
== END 2022-02-26 14:07 | disposition home or self-care (01) ==
LOC: SDC 07:02
PROVIDERS: ATTEND Internal Medicine Cardiovascular Disease
PROC: 4A023N7 Measurement of Cardiac Sampling and Pressure, Left Heart, Percutaneous Approach (ICD-10-PCS; principal; 2022-02-26)
PROC: B2111ZZ Fluoroscopy of Multiple Coronary Arteries using Low Osmolar Contrast (ICD-10-PCS; 2022-02-26)
DX: I25.10 Atherosclerotic heart disease of native coronary artery without angina pectoris (principal); I48.91 Unspecified atrial fibrillation; M31.5 Giant cell arteritis with polymyalgia rheumatica; E24.9 Cushing's syndrome, unspecified; K21.9 Gastro-esophageal reflux disease without esophagitis; E78.5 Hyperlipidemia, unspecified; Z79.01 Long term (current) use of anticoagulants; Z79.899 Other long term (current) drug therapy
CPT/HCPCS: 80061; 93458; C1894 ×3; 36415; 99152; J1644; J2250; J3010; Q9967

== ENCOUNTER 2022-03-01 13:14 | Outpatient (CLI) | payer MEDICARE ==
[~2022-03-01 13:14] MED LIST: Iopamidol 370 76% 100 ML VIAL ONE
== END 2022-03-01 13:15 | disposition home or self-care (01) ==
LOC: CT 13:14
PROVIDERS: ATTEND Internal Medicine Cardiovascular Disease
DX: R07.9 Chest pain, unspecified (principal)
CPT/HCPCS: 71260; Q9967

== ENCOUNTER 2022-05-28 11:21 | Outpatient (CLI) | payer MEDICARE | END 2022-05-28 11:22 | disposition home or self-care (01) | LOC: RAD 11:21 | PROVIDERS: ATTEND Internal Medicine | DX: R06.00 Dyspnea, unspecified (principal) | CPT/HCPCS: 71046 ==

== ENCOUNTER 2022-07-19 12:15 | Inpatient (IN) | payer MEDICARE ==
[2022-07-27 09:11] VITALS: BMI 24.9
[2022-07-28] MEDS ORDERED: Heparin 10,000 UNITS/ 10 ML VIAL ONE ×2 (06:42→07:29)
[2022-07-28] MEDS ORDERED: CEFAZOLIN 1 GM VIAL ONE (06:42)
[2022-07-28] MEDS ORDERED: Norepinephrine 4 MG/4 ML VIAL ONE (06:58)
[2022-07-28] MEDS ORDERED: SUGAMMADEX SODIUM 200 MG/2 ML VIAL ONE (06:58)
[2022-07-28] MEDS ORDERED: Hydrocortisone Sod Succ/PF 100 mg/2 ml Vial ONE (07:40)
[2022-07-28] MEDS ORDERED: Ondansetron PF 4 MG/2 ML Vial ONE (07:49)
[2022-07-28] MEDS ORDERED: Lidocaine 1% PF 5 ML VIAL ONE (07:49)
[2022-07-28] MEDS ORDERED: Rocuronium Bromide 10 MG/ML (10ML VIAL) ONE (07:49)
[2022-07-28] MEDS ORDERED: PROPOFOL 200 MG/20 ML VIAL ONE (07:49)
[2022-07-28] MEDS ORDERED: Protamine Sulfate 50 MG/5 ML VIAL ONE (08:55)
[2022-07-28] MEDS ORDERED: Iopamidol 370 76% 100 ML VIAL ONE (09:00)
[2022-07-28] MEDS ORDERED: Fentanyl 100 MCG/2 ML VIAL ONE (09:35)
== END 2022-07-28 13:52 | disposition home or self-care (01) | DRG 274 ==
LOC: SURG A 07-28 06:13
PROVIDERS: ADMIT Internal Medicine Cardiovascular Disease; ATTEND Internal Medicine Cardiovascular Disease
PROC: 02L73DK Occlusion of Left Atrial Appendage with Intraluminal Device, Percutaneous Approach (ICD-10-PCS; principal; 2022-07-28)
PROC: B24BZZ4 Ultrasonography of Heart with Aorta, Transesophageal (ICD-10-PCS; 2022-07-28)
DX: I48.0 Paroxysmal atrial fibrillation (principal); Z00.6 Encounter for examination for normal comparison and control in clinical research program; Z20.822 Contact with and (suspected) exposure to COVID-19; Z79.01 Long term (current) use of anticoagulants; Z79.52 Long term (current) use of systemic steroids; Z79.899 Other long term (current) drug therapy
CPT/HCPCS: 33340; 85347; 86850; 86900; 86901; 93306; 93312; C1759; C1760; C1894; J0690; J1644; J1720; J2405; J2704; J2720; J3010

== ENCOUNTER 2022-08-03 16:56 | Observation (INO) | payer MEDICARE ==
[~2022-08-03 16:56] MED LIST changes: -Iopamidol 370 76% 100 ML VIAL ONE; +Iopamidol-370 76% 500 ML 1 ML ONE
[2022-08-03 17:59] LABS: #Eosinphils 0.2 thou/uL (0.0-0.7); #Lymphocytes 1.2 thou/uL (1.20-3.40); #Monocytes 0.6 thou/uL (0.11-0.59); #Neutrophils 8.1 thou/uL (1.40-6.50); %Basophils 0.5 % (0.0-1.0); %Eosinophils 1.5 % (0.0-10.0); %Monocytes 5.9 % (0.0-10.0); %Neutrophils 80.2 % (42.0-75.0); Hemoglobin 13.4 g/dL (12.0-16.0); Mean Corpuscular HGB CONC 33.7 g/dL (32.0-36.0); Mean Corpuscular Hemoglobin 31.8 pg (27.0-31.0); Mean Corpuscular Volume 94.3 fl (78.0-98.0); Mean Platelet Volume 7.6 fL (7.4-10.4); Platelet Count 223 10x3/uL (130-400); RBC Distribution Width 12.5 % (11.5-14.5); Red Blood Cell (RBC) Count 4.21 mill/uL (4.20-5.40); White Blood Cell (WBC) Count 10.1 10x3/uL (4.8-10.8)
[2022-08-03 18:14] LABS: INR-International Normal Ratio 1.1; PTT 39.4 sec (22.9-36.1); Prothrombin Time 14.3 sec (12.0-14.7)
[2022-08-03 18:15] LABS: ALT (SGPT) 17 U/L (8-55); AST (SGOT) 19 U/L (5-34); Albumin 4.2 g/dL (3.4-4.8); Alkaline Phosphatase 56 U/L (40-110); Anion Gap 15 mmol/L (10-20); BUN (Urea Nitrogen) 17 mg/dL (9.8-20.1); Bilirubin, Total 0.6 mg/dL (0.2-1.2); Calc. Creatinine Clearance 0 mL/min (70-130); Calcium 9.8 mg/dL (7.8-10.44); Carbon Dioxide 26 mmol/L (23-31); Chloride 100 mmol/L (98-107); Estimated GFR 66; Globulin 2.4 g/dL (2.4-3.5); Glucose 99 mg/dL (83-110); Potassium 4.5 mmol/L (3.5-5.1); Protein, Total 6.6 g/dL (5.8-8.1); Sodium 136 mmol/L (136-145)
[2022-08-03 19:46] LABS: Bilirubin Negative (Negative); Blood, Urine Negative (Negative); Clarity Clear (Clear); Glucose, Urine (Dipstick) Normal (Negative); Ketone, Urine Negative (Negative); Leukocyte Negative Leu/uL (Negative); Nitrite Negative (Negative); Protein, Urine (Dipstick) Negative (Neg-Trace); Specific Gravity, Urine 1.021 (1.002-1.036); Urobilinogen Normal mg/dL (Less than 2); pH, Urine 7.5 (5.0-9.0)
[2022-08-03 21:01] LABS: Troponin I Less than 0.010 ng/mL (< 0.028)
[2022-08-03] MEDS ORDERED: HYDROcodone/Acetaminophen 5/325 mg Tablet PO PRN (21:04)
[2022-08-03] MEDS ORDERED: Ondansetron PF 4 MG/2 ML Vial IVP PRN (21:04)
[2022-08-03] MEDS ORDERED: Acetaminophen 325 MG TAB PO PRN (21:04)
[2022-08-03] MEDS ORDERED: HYDROcodone/Acetaminophen 10/325 mg Tablet PO PRN (21:37)
[2022-08-03] MEDS ORDERED: Acetaminophen 325 MG TAB ONE (22:28)
[2022-08-04 00:27] LABS: Troponin I Less than 0.010 ng/mL (< 0.028)
[2022-08-04 01:30] LABS: #Basophils 0.1 thou/uL (0.0-0.2); #Eosinphils 0.2 thou/uL (0.0-0.7); #Lymphocytes 1.5 thou/uL (1.20-3.40); #Monocytes 0.9 thou/uL (0.11-0.59); #Neutrophils 5.1 thou/uL (1.40-6.50); %Eosinophils 2.2 % (0.0-10.0); %Lymphocytes 19.8 % (21.0-51.0); %Monocytes 11.2 % (0.0-10.0); %Neutrophils 65.8 % (42.0-75.0); Hemoglobin 12.3 g/dL (12.0-16.0); Mean Corpuscular HGB CONC 34.5 g/dL (32.0-36.0); Mean Corpuscular Hemoglobin 32.4 pg (27.0-31.0); Mean Corpuscular Volume 94.1 fl (78.0-98.0); Mean Platelet Volume 7.5 fL (7.4-10.4); Platelet Count 192 10x3/uL (130-400); RBC Distribution Width 12.6 % (11.5-14.5); White Blood Cell (WBC) Count 7.7 10x3/uL (4.8-10.8)
[2022-08-04 01:57] LABS: Anion Gap 12 mmol/L (10-20); BUN (Urea Nitrogen) 15 mg/dL (9.8-20.1); Calc. Creatinine Clearance 0 mL/min (70-130); Calcium 9.3 mg/dL (7.8-10.44); Carbon Dioxide 27 mmol/L (23-31); Chloride 102 mmol/L (98-107); Estimated GFR 66; Glucose 79 mg/dL (83-110); Potassium 3.9 mmol/L (3.5-5.1); Sodium 137 mmol/L (136-145)
[2022-08-04] MEDS ORDERED: HYDROcodone/Acetaminophen 10/325 mg Tablet ONE (03:10)
[2022-08-04] MEDS ORDERED: predniSONE 1 MG TAB PO SCH (08:00)
[2022-08-04] MEDS ORDERED: predniSONE 5 MG TAB PO SCH (08:00)
[2022-08-04] MEDS ORDERED: Apixaban 5 MG TAB PO SCH (09:00)
[2022-08-04] MEDS ORDERED: Flecainide 50 MG TAB PO SCH (09:00)
[2022-08-04] MEDS ORDERED: Ferrex 150 Plus (iron poly cmplx) PO SCH (09:00)
[2022-08-04] MEDS ORDERED: Metoprolol Tartrate 25 MG TAB PO SCH (09:00)
[2022-08-04] MEDS ORDERED: TRIAMTERENE 50 MG PO SCH (09:00)
[2022-08-04] MEDS ORDERED: Metoprolol Tartrate 25 MG TAB ONE (09:04)
[2022-08-04] MEDS ORDERED: Simvastatin 10 MG TAB PO SCH (21:00)
== END 2022-08-04 11:00 | disposition home or self-care (01) ==
LOC: ERS 16:56 → ERHOLD 20:19
PROVIDERS: ADMIT Student in an Organized Health Care Education/Training Program; ATTEND Nurse Practitioner Family
DX: R07.89 Other chest pain (principal); E78.5 Hyperlipidemia, unspecified; K21.9 Gastro-esophageal reflux disease without esophagitis; I11.0 Hypertensive heart disease with heart failure; I50.33 Acute on chronic diastolic (congestive) heart failure; I48.0 Paroxysmal atrial fibrillation; I25.10 Atherosclerotic heart disease of native coronary artery without angina pectoris; M31.6 Other giant cell arteritis; H54.61 Unqualified visual loss, right eye, normal vision left eye; M19.90 Unspecified osteoarthritis, unspecified site; G43.709 Chronic migraine without aura, not intractable, without status migrainosus; R13.10 Dysphagia, unspecified; Z79.01 Long term (current) use of anticoagulants; Z79.52 Long term (current) use of systemic steroids; Z79.899 Other long term (current) drug therapy; Z95.818 Presence of other cardiac implants and grafts
CPT/HCPCS: 51701; 71045; 71275; 80048; 80053; 81003; 83880; 84484 ×2; 85025 ×2; 85610; 85730; 93005; 94760; 99285; G0378 ×2; 36415; J7512; Q9967

== ENCOUNTER 2022-09-10 06:54 | Day surgery (SDC) | payer MEDICARE ==
[2022-09-08 14:32] VITALS: BMI 24.9
[2022-09-10] MEDS ORDERED: PROPOFOL 200 MG/20 ML VIAL ONE (09:12)
[2022-09-11] MEDS ORDERED: Aspirin 81 mg Enteric Coated Tablet PO SCH (09:00)
[2022-09-11] MEDS ORDERED: Clopidogrel Bisulfate 75 MG TAB PO SCH (09:00)
== END 2022-09-10 11:03 | disposition home or self-care (01) ==
LOC: SDC 06:54
PROVIDERS: ATTEND Internal Medicine Cardiovascular Disease
PROC: B246ZZ4 Ultrasonography of Right and Left Heart, Transesophageal (ICD-10-PCS; principal; 2022-09-10)
DX: I48.0 Paroxysmal atrial fibrillation (principal); I08.1 Rheumatic disorders of both mitral and tricuspid valves; K21.9 Gastro-esophageal reflux disease without esophagitis; M19.90 Unspecified osteoarthritis, unspecified site; I10 Essential (primary) hypertension; E78.5 Hyperlipidemia, unspecified; M35.3 Polymyalgia rheumatica; Z79.52 Long term (current) use of systemic steroids; Z79.899 Other long term (current) drug therapy; Z95.818 Presence of other cardiac implants and grafts
CPT/HCPCS: 93312; J2704

== ENCOUNTER 2022-12-23 15:08 | Observation (INO) | payer MEDICARE ==
[2022-12-23 16:36] LABS: #Eosinphils 0.1 thou/uL (0.0-0.7); #Monocytes 0.4 thou/uL (0.11-0.59); #Neutrophils 7.1 thou/uL (1.40-6.50); %Basophils 0.3 % (0.0-1.0); %Eosinophils 0.6 % (0.0-10.0); %Lymphocytes 11.9 % (21.0-51.0); %Monocytes 4.3 % (0.0-10.0); %Neutrophils 82.1 % (42.0-75.0); Hemoglobin 13.7 g/dL (12.0-16.0); Mean Corpuscular HGB CONC 33.6 g/dL (32.0-36.0); Mean Corpuscular Hemoglobin 30.5 pg (27.0-31.0); Mean Corpuscular Volume 90.9 fl (78.0-98.0); Mean Platelet Volume 9.7 fL (7.4-10.4); Platelet Count 209 10x3/uL (130-400); RBC Distribution Width 13.2 % (11.5-14.5); Red Blood Cell (RBC) Count 4.49 mill/uL (4.20-5.40); White Blood Cell (WBC) Count 8.6 10x3/uL (4.8-10.8)
[2022-12-23 17:01] LABS: ALT (SGPT) 19 U/L (8-55); AST (SGOT) 23 U/L (5-34); Albumin 4.6 g/dL (3.4-4.8); Alkaline Phosphatase 53 U/L (40-110); Anion Gap 12 mmol/L (10-20); BUN (Urea Nitrogen) 17 mg/dL (9.8-20.1); Bilirubin, Total 0.7 mg/dL (0.2-1.2); Calc. Creatinine Clearance 0 mL/min (70-130); Calcium 10.3 mg/dL (7.8-10.44); Carbon Dioxide 28 mmol/L (23-31); Chloride 97 mmol/L (98-107); Estimated GFR 57; Globulin 2.4 g/dL (2.4-3.5); Glucose 97 mg/dL (83-110); Lipase 13 U/L (8-78); Potassium 3.6 mmol/L (3.5-5.1); Sodium 133 mmol/L (136-145)
[2022-12-23] MEDS ORDERED: Acetaminophen 500 MG TAB ONE (18:26)
[2022-12-23] MEDS ORDERED: Nitroglycerin 2% Ointment 1 INCH/1 GM Packet ONE (18:26)
[2022-12-23] MEDS ORDERED: Ondansetron PF 4 MG/2 ML Vial IVP PRN (18:31)
[2022-12-23 20:56] VITALS: BMI 26.4
[2022-12-23] MEDS ORDERED: Simvastatin 10 MG TAB PO SCH (21:00)
[2022-12-23] MEDS ORDERED: Famotidine 20 MG TAB PO SCH (21:00)
[2022-12-23 21:22] LABS: Troponin I Less than 0.010 ng/mL (< 0.028)
[2022-12-23] MEDS: Acetaminophen 325 MG TAB PO PRN (21:54)
[2022-12-23 23:35] LABS: Troponin I Less than 0.010 ng/mL (< 0.028)
[2022-12-24] MEDS: Acetaminophen 325 MG TAB PO PRN ×2 (03:22→09:44)
[2022-12-24] MEDS ORDERED: traMADol HCl 50 MG TAB PO PRN (04:04)
[2022-12-24 04:44] LABS: #Eosinphils 0.1 thou/uL (0.0-0.7); #Monocytes 0.6 thou/uL (0.11-0.59); #Neutrophils 4.1 thou/uL (1.40-6.50); %Basophils 0.5 % (0.0-1.0); %Eosinophils 1.7 % (0.0-10.0); %Lymphocytes 23.5 % (21.0-51.0); %Monocytes 8.9 % (0.0-10.0); %Neutrophils 64.8 % (42.0-75.0); Hemoglobin 13.1 g/dL (12.0-16.0); Mean Corpuscular Hemoglobin 30.7 pg (27.0-31.0); Mean Corpuscular Volume 90.2 fl (78.0-98.0); Mean Platelet Volume 9.6 fL (7.4-10.4); Platelet Count 196 10x3/uL (130-400); RBC Distribution Width 13.2 % (11.5-14.5); Red Blood Cell (RBC) Count 4.27 mill/uL (4.20-5.40); White Blood Cell (WBC) Count 6.3 10x3/uL (4.8-10.8)
[2022-12-24 05:08] LABS: Anion Gap 11 mmol/L (10-20); BUN (Urea Nitrogen) 16 mg/dL (9.8-20.1); Calc. Creatinine Clearance 49 mL/min (70-130); Calcium 9.5 mg/dL (7.8-10.44); Carbon Dioxide 25 mmol/L (23-31); Chloride 101 mmol/L (98-107); Estimated GFR 66; Glucose 85 mg/dL (83-110); Potassium 3.5 mmol/L (3.5-5.1); Sodium 133 mmol/L (136-145)
[2022-12-24] MEDS ORDERED: predniSONE 1 MG TAB PO SCH (08:00)
[2022-12-24] MEDS ORDERED: Iopamidol 370 76% 100 ML VIAL ONE (08:11)
[2022-12-24] MEDS ORDERED: Flecainide 50 MG TAB PO SCH (09:00)
[2022-12-24] MEDS ORDERED: Non-Formulary Item 1 EACH (Pantoprazole Sodium [Protonix] 20 MG Tablet.Dr) PO SCH (09:00)
[2022-12-24] MEDS ORDERED: Aspirin 81 mg Enteric Coated Tablet PO SCH (09:00)
[2022-12-24] MEDS ORDERED: Aspirin Chewable 81 MG TAB PO SCH (09:00)
[2022-12-24] MEDS ORDERED: Metoprolol Tartrate 25 MG TAB PO SCH (09:00)
[2022-12-24] MEDS: Clopidogrel Bisulfate 75 MG TAB PO SCH (09:33)
[2022-12-24] MEDS ORDERED: Furosemide 40 MG/4 ML VIAL SLOW IVP SCH (14:30)
[2022-12-24 16:00] VITALS: BP 110/61; TEMP 97.6
== END 2022-12-24 17:12 | disposition home or self-care (01) ==
LOC: ERS 15:08 → 2SW 18:11
PROVIDERS: ADMIT Internal Medicine; ATTEND Family Medicine
DX: R07.89 Other chest pain (principal); R06.02 Shortness of breath; I25.10 Atherosclerotic heart disease of native coronary artery without angina pectoris; I48.0 Paroxysmal atrial fibrillation; H54.7 Unspecified visual loss; E24.9 Cushing's syndrome, unspecified; G43.909 Migraine, unspecified, not intractable, without status migrainosus; E78.5 Hyperlipidemia, unspecified; E87.1 Hypo-osmolality and hyponatremia; M31.6 Other giant cell arteritis; K21.9 Gastro-esophageal reflux disease without esophagitis; Z79.899 Other long term (current) drug therapy
CPT/HCPCS: 36415; 71045; 71275; 74177; 80048; 80053; 83690; 83880; 84484; 85025; 93005; 93306; 94760; 96372; 96374; G0378; J1650; J1940; J7512; Q9967

== ENCOUNTER 2023-05-05 14:58 | Outpatient (CLI) | payer MEDICARE | END 2023-05-05 14:59 | disposition home or self-care (01) | LOC: RAD 14:58 | PROVIDERS: ATTEND Internal Medicine | DX: R06.00 Dyspnea, unspecified (principal); I70.0 Atherosclerosis of aorta | CPT/HCPCS: 71046 ==

== ENCOUNTER → 2023-09-09 | Day surgery (SDC) | payer MEDICARE ==
[2023-09-06 11:41] VITALS: BMI 24.0
[2023-09-06 12:02] LABS: Hematocrit 40.3 % (34.9-44.5); Hemoglobin 13.7 g/dL (12.0-15.5); Mean Corpuscular Hemoglobin 30.6 pg (27.0-33.0); Mean Platelet Volume 10.3 fl (7.4-10.4); Platelet Count 224 10x3/uL (150-450); RBC Distribution Width 13.5 % (11.5-14.5); Red Blood Cell (RBC) Count 4.48 10x6/uL (3.90-5.03); White Blood Cell (WBC) Count 9.6 10x3/uL (3.5-10.5)
[2023-09-06 12:19] LABS: PTT 28.9 sec (22.0-33.0); Prothrombin Time 10.4 sec (9.5-12.1)
[2023-09-06 12:24] LABS: Anion Gap 12 mmol/L (10-20); BUN (Urea Nitrogen) 18 mg/dL (9.8-20.1); Calc. Creatinine Clearance 41 mL/min (70-130); Calcium 9.6 mg/dL (7.8-10.44); Carbon Dioxide 28 mmol/L (23-31); Chloride 101 mmol/L (98-107); Estimated GFR 58; Glucose 100 mg/dL (83-110); Sodium 137 mmol/L (136-145)
[~2023-09-09] MED LIST changes: -Iopamidol-370 76% 500 ML 1 ML ONE; +KETAMINE 100 MG/ML (5ML VIAL) ONE; +Ketamine In 0.9 % NaCl 50 MG/5 ML SYRINGE ONE
== END | disposition home or self-care (01) ==
LOC: SDC 06:10
PROVIDERS: ATTEND Internal Medicine Cardiovascular Disease
DX: I48.0 Paroxysmal atrial fibrillation (principal); Z79.899 Other long term (current) drug therapy; Z79.01 Long term (current) use of anticoagulants
CPT/HCPCS: 80048; 85027; 85610; 85730; 93312; J3490

== ENCOUNTER 2023-11-30 12:11 | Inpatient (IN) | payer MEDICARE ==
[~2023-11-30 12:11] MED LIST changes: +Iopamidol-370 76% 500 ML MDV (1 ML CHARGE) ONE; -KETAMINE 100 MG/ML (5ML VIAL) ONE; -Ketamine In 0.9 % NaCl 50 MG/5 ML SYRINGE ONE
[2023-11-30 12:47] LABS: #Basophils Less than 0.03 10x3/uL (0.0-0.2); #Eosinphils Less than 0.03 10x3/uL (0.0-0.7); %Basophils 0.2 % (0.0-1.0); %Eosinophils 0.2 % (0.0-10.0); %Lymphocytes 7.5 % (21.0-51.0); %Monocytes 11.6 % (0.0-10.0); Hematocrit 38.9 % (36.0-47.0); Mean Corpuscular HGB CONC 33.4 g/dL (32.0-36.0); Mean Corpuscular Hemoglobin 30.2 pg (27.0-31.0); Mean Corpuscular Volume 90.5 fL (78.0-98.0); Mean Platelet Volume 10.1 fL (7.4-10.4); Platelet Count 204 10x3/uL (130-400); RBC Distribution Width 13.9 % (11.5-14.5)
[2023-11-30] MEDS ORDERED: dilTIAZem 125 MG/25 ML SDV ONE (12:48)
[2023-11-30] MEDS ORDERED: dilTIAZem 25 MG/5 ML VIAL ONE (12:48)
[2023-11-30 13:08] LABS: ALT (SGPT) 72 U/L (8-55); AST (SGOT) 80 U/L (5-34); Alkaline Phosphatase 78 U/L (40-110); Anion Gap 14 mmol/L (10-20); BUN (Urea Nitrogen) 19 mg/dL (9.8-20.1); Bilirubin, Total 2.2 mg/dL (0.2-1.2); Calc. Creatinine Clearance 0 mL/min (70-130); Calcium 9.9 mg/dL (7.8-10.44); Carbon Dioxide 26 mmol/L (23-31); Chloride 98 mmol/L (98-107); Estimated GFR 65; Globulin 2.7 g/dL (2.4-3.5); Glucose 96 mg/dL (83-110); Potassium 3.6 mmol/L (3.5-5.1); Protein, Total 6.7 g/dL (5.8-8.1); Sodium 134 mmol/L (136-145); Troponin I Less than 0.010 ng/mL (< 0.028)
[2023-11-30] MEDS ORDERED: Morphine 4 MG/ML VIAL ONE (14:35)
[2023-11-30] MEDS ORDERED: Furosemide 40 MG (4 mL) VIAL ONE (15:48)
[2023-11-30 19:37] LABS: Troponin I Less than 0.010 ng/mL (< 0.028)
[2023-11-30 19:41] VITALS: BMI 24.7
[2023-11-30] MEDS ORDERED: Acetaminophen 650 MG Suppository PR PRN (19:44)
[2023-11-30] MEDS: Amiodarone 450 MG in Dextrose 5% in Water 250 ML IVPB SCH (19:55)
[2023-11-30] MEDS: HYDROcodone/Acetaminophen 10/325 mg Tablet PO SCH (20:54)
[2023-11-30] MEDS: Pantoprazole DR 40 MG TAB PO SCH (21:33)
[2023-11-30] MEDS: Simvastatin 10 MG TAB PO SCH (21:34)
[2023-11-30] MEDS: Acetaminophen 325 MG TAB PO PRN (22:00)
[2023-11-30 22:20] LABS: Troponin I Less than 0.010 ng/mL (< 0.028)
[2023-11-30] MEDS: Metoprolol Tartrate 25 MG TAB PO SCH (23:17)
[2023-12-01 05:43] LABS: #Basophils Less than 0.03 10x3/uL (0.0-0.2); %Basophils 0.1 % (0.0-1.0); %Eosinophils 1.6 % (0.0-10.0); %Lymphocytes 13.3 % (21.0-51.0); %Monocytes 13.9 % (0.0-10.0); %Neutrophils 70.6 % (42.0-75.0); Hematocrit 34.6 % (36.0-47.0); Hemoglobin 11.5 g/dL (12.0-16.0); Mean Corpuscular HGB CONC 33.2 g/dL (32.0-36.0); Mean Corpuscular Hemoglobin 29.6 pg (27.0-31.0); Mean Corpuscular Volume 89.2 fL (78.0-98.0); Mean Platelet Volume 10.5 fL (7.4-10.4); Platelet Count 161 10x3/uL (130-400); RBC Distribution Width 13.8 % (11.5-14.5); Red Blood Cell (RBC) Count 3.88 mill/uL (4.20-5.40)
[2023-12-01 06:07] LABS: ALT (SGPT) 49 U/L (8-55); AST (SGOT) 42 U/L (5-34); Albumin 3.4 g/dL (3.4-4.8); Alkaline Phosphatase 69 U/L (40-110); Anion Gap 12 mmol/L (10-20); BUN (Urea Nitrogen) 16 mg/dL (9.8-20.1); Bilirubin, Total 1.4 mg/dL (0.2-1.2); Calc. Creatinine Clearance 46 mL/min (70-130); Calcium 9.5 mg/dL (7.8-10.44); Carbon Dioxide 29 mmol/L (23-31); Chloride 96 mmol/L (98-107); Estimated GFR 66; Globulin 2.6 g/dL (2.4-3.5); Glucose 95 mg/dL (83-110); Magnesium 2.1 mg/dL (1.6-2.6); Potassium 2.7 mmol/L (3.5-5.1); Sodium 134 mmol/L (136-145)
[2023-12-01] MEDS: traMADol HCl 50 MG TAB PO PRN (07:20)
[2023-12-01] MEDS ORDERED: predniSONE 1 MG TAB PO SCH (08:00)
[2023-12-01] MEDS: HYDROcodone/Acetaminophen 10/325 mg Tablet PO PRN (10:00)
[2023-12-01] MEDS: Aspirin 81 mg Enteric Coated Tablet PO SCH (10:01)
[2023-12-01] MEDS: Enoxaparin 30 MG (0.3 mL) SYRINGE SC SCH (10:03)
[2023-12-01] MEDS: predniSONE 1 MG TAB PO SCH (10:56)
[2023-12-01] MEDS ORDERED: Electrolyte Replacement Protocol FS PRN (11:45)
[2023-12-01] MEDS: Potassium Bicarbonate/Cit Ac 20 MEQ TAB PO SCH (12:00)
[2023-12-01] MEDS: Senokot S 8.6-50 MG TAB PO PRN (17:57)
[2023-12-01 20:39] LABS: Potassium 4.2 mmol/L (3.5-5.1)
[2023-12-02] MEDS: Enoxaparin 40 MG (0.4 mL) SYRINGE SC SCH (09:00)
[2023-12-02] MEDS ORDERED: Electrolyte Replacement Protocol 1 EACH FS SCH (09:53)
[2023-12-02] MEDS ORDERED: Morphine 4 MG/ML VIAL SLOW IVP SCH (10:00)
[2023-12-02] MEDS ORDERED: Heparin 10,000 UNITS/ 10 ML VIAL ONE (10:19)
[2023-12-02] MEDS ORDERED: DOPamine 400 MG/D5W 250 ML 250 ML ONE (10:20)
[2023-12-02] MEDS ORDERED: Lidocaine 1% (PF) 30 ML VIAL ONE (10:20)
[2023-12-02] MEDS: Morphine 2 MG/ML VIAL SLOW IVP SCH (10:46)
[2023-12-02] MEDS ORDERED: Lidocaine 1% PF 5 ML VIAL ONE (12:24)
[2023-12-02] MEDS ORDERED: fentaNYL 50 mcg/mL 1 mL Vial ONE ×4 (12:28→15:00)
[2023-12-02] MEDS ORDERED: Acetaminophen 325 MG TAB PO PRN (13:27)
[2023-12-02] MEDS ORDERED: Midazolam HCl 2 mg/2 ml Vial ONE (13:52)
[2023-12-02] MEDS: Metoprolol Tartrate 25 MG TAB PO SCH (20:41)
[2023-12-03 04:40] LABS: #Basophils Less than 0.03 10x3/uL (0.0-0.2); %Basophils 0.1 % (0.0-1.0); %Eosinophils 2.8 % (0.0-10.0); %Lymphocytes 11.8 % (21.0-51.0); %Monocytes 9.8 % (0.0-10.0); %Neutrophils 75.1 % (42.0-75.0); Hematocrit 34.9 % (36.0-47.0); Hemoglobin 11.4 g/dL (12.0-16.0); Mean Corpuscular HGB CONC 32.7 g/dL (32.0-36.0); Mean Corpuscular Hemoglobin 30.4 pg (27.0-31.0); Mean Corpuscular Volume 93.1 fL (78.0-98.0); Mean Platelet Volume 10.2 fL (7.4-10.4); Platelet Count 199 10x3/uL (130-400); RBC Distribution Width 13.7 % (11.5-14.5); Red Blood Cell (RBC) Count 3.75 mill/uL (4.20-5.40)
[2023-12-03 05:23] LABS: ALT (SGPT) 29 U/L (8-55); AST (SGOT) 24 U/L (5-34); Alkaline Phosphatase 64 U/L (40-110); Anion Gap 12 mmol/L (10-20); BUN (Urea Nitrogen) 13 mg/dL (9.8-20.1); Calc. Creatinine Clearance 52 mL/min (70-130); Calcium 9.2 mg/dL (7.8-10.44); Carbon Dioxide 25 mmol/L (23-31); Chloride 105 mmol/L (98-107); Estimated GFR 77; Globulin 2.6 g/dL (2.4-3.5); Glucose 103 mg/dL (83-110); Protein, Total 5.6 g/dL (5.8-8.1); Sodium 138 mmol/L (136-145)
[2023-12-03 07:44] VITALS: TEMP 97.8
[2023-12-03 13:43] VITALS: BP 138/87
== END 2023-12-03 14:09 | disposition home or self-care (01) | DRG 274 ==
LOC: ERS 12:11 → ERHOLD 16:56 → IMCU/EMU 19:42
PROVIDERS: ADMIT Student in an Organized Health Care Education/Training Program; ATTEND Internal Medicine
PROC: 02583ZZ Destruction of Conduction Mechanism, Percutaneous Approach (ICD-10-PCS; principal; 2023-12-02)
PROC: 4A023FZ Measurement of Cardiac Rhythm, Percutaneous Approach (ICD-10-PCS; 2023-12-02)
PROC: 4A0234Z Measurement of Cardiac Electrical Activity, Percutaneous Approach (ICD-10-PCS; 2023-12-02)
DX: I48.19 Other persistent atrial fibrillation (principal); E87.1 Hypo-osmolality and hyponatremia; E87.6 Hypokalemia; E83.42 Hypomagnesemia; G89.4 Chronic pain syndrome; I10 Essential (primary) hypertension; I49.5 Sick sinus syndrome; E78.5 Hyperlipidemia, unspecified; M31.6 Other giant cell arteritis; M54.12 Radiculopathy, cervical region; K21.9 Gastro-esophageal reflux disease without esophagitis; I95.9 Hypotension, unspecified; Z79.899 Other long term (current) drug therapy; Z79.82 Long term (current) use of aspirin; Z95.0 Presence of cardiac pacemaker; Z95.818 Presence of other cardiac implants and grafts
CPT/HCPCS: 36415; 71045; 71275; 80053; 83735; 83880; 84443; 84484; 85025; 93005; 93010; 93613; 93650; 96374; 96375; J0282; J1265; J1644; J1650; J1940; J2001; J2250; J2270; J2272; J3010; J7070; J7512; Q9967

== ENCOUNTER 2023-12-29 10:46 | Outpatient (CLI) | payer MEDICARE | END 2023-12-29 10:47 | disposition home or self-care (01) | LOC: RAD 10:46 | PROVIDERS: ATTEND Physician Assistant Medical | DX: R06.02 Shortness of breath (principal); J90 Pleural effusion, not elsewhere classified; J98.11 Atelectasis | CPT/HCPCS: 71046 ==